=== PATIENT | female | born 1940 | race Caucasian/White ===

== ENCOUNTER → 2020-01-11 09:58 | Outpatient (BNVA) | payer MEDICARE, SELFPAY | PROVIDERS: Family Provider Nurse Practitioner Family; PCP Nurse Practitioner Family; Visit Provider Registered Nurse | DX: E11.9 Type 2 diabetes mellitus without complications (principal); M15.9 Polyosteoarthritis, unspecified; I10 Essential (primary) hypertension; K21.9 Gastro-esophageal reflux disease without esophagitis; N39.46 Mixed incontinence; E78.2 Mixed hyperlipidemia | CPT/HCPCS: 80053; 80061; 82044; 83036; 85025 ==

== ENCOUNTER → 2020-07-11 13:56 | Outpatient (BNVA) | payer MEDICARE, SELFPAY | PROVIDERS: Family Provider Nurse Practitioner Family; PCP Nurse Practitioner Family; Visit Provider Registered Nurse | DX: R10.9 Unspecified abdominal pain (principal) | CPT/HCPCS: 81000 ==

== ENCOUNTER → 2020-11-13 11:12 | Outpatient (BNVA) | payer MEDICARE, SELFPAY | PROVIDERS: Family Provider Nurse Practitioner Family; PCP Nurse Practitioner Family; Visit Provider Registered Nurse | DX: E11.9 Type 2 diabetes mellitus without complications (principal); M15.9 Polyosteoarthritis, unspecified; I10 Essential (primary) hypertension; K21.9 Gastro-esophageal reflux disease without esophagitis; N39.46 Mixed incontinence | CPT/HCPCS: 80053; 80061; 83036; 85025 ==

== ENCOUNTER → 2021-05-17 09:01 | Outpatient (BNVA) | payer MEDICARE, SELFPAY | PROVIDERS: Family Provider Nurse Practitioner Family; PCP Nurse Practitioner Family; Visit Provider Registered Nurse | DX: E11.9 Type 2 diabetes mellitus without complications (principal); R10.9 Unspecified abdominal pain; I10 Essential (primary) hypertension; E78.2 Mixed hyperlipidemia | CPT/HCPCS: 80053; 81000; 83036; 85025 ==

== ENCOUNTER → 2021-11-27 11:03 | Outpatient (BNVA) | payer MEDICARE, SELFPAY | PROVIDERS: Family Provider Nurse Practitioner Family; PCP Registered Nurse; Visit Provider Registered Nurse | DX: E11.9 Type 2 diabetes mellitus without complications (principal); R29.898 Other symptoms and signs involving the musculoskeletal system; I10 Essential (primary) hypertension; K21.9 Gastro-esophageal reflux disease without esophagitis | CPT/HCPCS: 83036 ==

== ENCOUNTER 2021-12-05 10:47 | Outpatient (RCR) | payer MEDICARE, SELFPAY | END 2021-12-17 23:59 | disposition home or self-care (01) | LOC: SOT 10:47 | PROVIDERS: PCP Registered Nurse; Visit Provider Registered Nurse | DX: R26.89 Other abnormalities of gait and mobility (principal); R29.898 Other symptoms and signs involving the musculoskeletal system | CPT/HCPCS: 97167; 97530 ==

== ENCOUNTER → 2022-05-23 09:49 | Outpatient (BNVA) | payer MEDICARE, SELFPAY | PROVIDERS: PCP Registered Nurse; Visit Provider Registered Nurse | DX: E11.9 Type 2 diabetes mellitus without complications (principal); I10 Essential (primary) hypertension; M15.9 Polyosteoarthritis, unspecified | CPT/HCPCS: 80053; 83036; 85025 ==

== ENCOUNTER → 2022-10-22 10:00 | Outpatient (BNVA) | payer MEDICARE, SELFPAY | PROVIDERS: PCP Registered Nurse; Visit Provider Registered Nurse | DX: E11.9 Type 2 diabetes mellitus without complications (principal); M15.9 Polyosteoarthritis, unspecified; K21.9 Gastro-esophageal reflux disease without esophagitis; N39.46 Mixed incontinence; I10 Essential (primary) hypertension; E78.2 Mixed hyperlipidemia; N32.81 Overactive bladder | CPT/HCPCS: 83036 ==

== ENCOUNTER → 2023-09-02 10:37 | Outpatient (BNVA) | payer MEDICARE, SELFPAY | PROVIDERS: PCP Registered Nurse; Visit Provider Registered Nurse | DX: E11.9 Type 2 diabetes mellitus without complications (principal); E78.5 Hyperlipidemia, unspecified; I10 Essential (primary) hypertension | CPT/HCPCS: 80053; 80061; 83036; 85025 ==

== ENCOUNTER → 2024-02-03 11:47 | Outpatient (BNVA) | payer MEDICARE, SELFPAY | PROVIDERS: PCP Registered Nurse; Visit Provider Registered Nurse | DX: E11.9 Type 2 diabetes mellitus without complications (principal) | CPT/HCPCS: 80053; 83036; 85025 ==

== ENCOUNTER → 2024-09-09 11:23 | Outpatient (BNVA) | payer MEDICARE, SELFPAY | PROVIDERS: PCP Registered Nurse; Visit Provider Registered Nurse | DX: E11.9 Type 2 diabetes mellitus without complications (principal) | CPT/HCPCS: 80048; 83036; 85025 ==

== ENCOUNTER → 2025-03-17 11:17 | Outpatient (BNVA) | payer MEDICARE, SELFPAY | PROVIDERS: PCP Registered Nurse; Visit Provider Registered Nurse | DX: E11.9 Type 2 diabetes mellitus without complications (principal); N39.0 Urinary tract infection, site not specified | CPT/HCPCS: 81000; 87086 ==

== ENCOUNTER 2025-04-18 10:19 | Inpatient (IN) | payer MEDICARE, SELFPAY ==
[2025-04-18] VITALS (16 sets, daily range): BP systolic 131–152; BP diastolic 60–86; PULSE 64–85; RESP 16–20; TEMP 36.3–36.9; O2SAT 90–100; BMI 32.3
--- OUTSIDE RECORDS SUMMARY | 2025-04-18 10:25 | XMS_ITS | Clinical Summary ---
Author Organization [facility] Address [address] [facility] Attn: Epic Prelude ADT LOTTIE GARZA [id number] Care Team Providers Care All Around Patternmaker Name Role Phone MARICARMEN Damico Sr., Lambert Marroquin Primary Care Pro vider Allergies Active Allergy Reactions Criticality Noted Date Comments Meperidine Unknown 08/11/2010 Active Problems Problem Noted Date Diagnosed Date Hyponatremia 08/11/2010 Pancreatitis 08/11/2010 Dehydration 08/11/2010 Choledocholithiasis ( CBD stone with T-tube in p lace) 08/02/2010 Immunizations Immunization Administration Dates Next Due Influenza Seasonal Unspecified Formulation IM Social History Tobacco Use Types Packs/Day Years Used Date Smoking Tobacco: Never Comments Unknown Sex and Gender Information Value Date Recorded Sex Assigned at Not on file 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
--- NOTE | 2025-04-18 10:42 | XR_ITS ---
WS: [id number] XR foot RT min 3V* [id number] REASON FOR EXAM: Pain swelling infection FINDINGS: No acute fracture or focal bone lesion. No bone erosion or periosteal reaction. Significant hallux valgus subluxation at the first MTP joint with mild changes of osteoarthritis. Mild joint space narrowing and mild subchondral sclerosis in the DIP and PIP joints of the toes. Significant joint space narrowing and subchondral sclerosis in the Lisfranc, intertarsal, and Chopart joints of the midfoot. Large dorsal osteophytosis in the medial cuneiform tarsal navicular articulation. Subtalar joint is intact and relatively well preserved. Large anterior calcaneal enthesophyte. XR/XR foot RT min 3V* [id number] IMPRESSION: No finding of osteomyelitis or septic joint. 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
[2025-04-18 11:16] LABS: Hematocrit 42.2 % (36-47); Hemoglobin 14.30 g/dL (11.27-16.99); Mean Corpuscular HGB Conc 33.9 g/dL (30-55); Mean Corpuscular Hemoglobin 28.8 pg (27-33); Mean Corpuscular Volume 85.1 fl (85-98); Nucleated Red Blood Cells % 0 %; Platelet Count 268 10^3/cmm (157-399); Red Blood Count 4.96 10^6/uL (3.85-5.65); White Blood Count 10.31 10^3/uL (3.29-11.43)
--- NOTE | 2025-04-18 11:18 | ED_ITS ---
HPI - Extremity Problem 2 General: Chief complaint: Extremity Problem,Nontraumatic Stated complaint: spot of R foot, red,hot to touch Time Seen by Provider: 04/18/25 10:23 Source: patient Mode of arrival: ambulatory Limitations: no limitations History of Present Illness: 84-year-old female history of diabetes s tates she noticed a wound to the top of her right foot last week states that the week it is worsening and has grown in send drainage increasing redness to her foot along with pain. She has not seen anyone for this wound. Denies any known injuries. Associated symptoms: Deny chest pain, fever(s) or rash Related Data Previous Rx's ?Medication ?Instructions ?Recorded Motorized Scooter #1 ea 05/17/21 blood sugar diagnostic (Blood #50 ea 11/27/21 Glucose Test strips) blood-glucose meter (Accu-Chek #1 ea 04/23/22 Guide Glucose Meter) rosuvastatin 10 mg tablet See Rx Instructions .Route 0 07/06/24 .COMPLEX #90 tabs trazodone 50 mg tablet 50 mg PO DAILY 30 days #30 t abs 09/13/24 amlodipine 10 mg tablet See Rx Instructions .Route 0 12/22/24 .COMPLEX #100 tabs celecoxib 200 mg capsule See Rx Instructions .Route 0 12/27/24 .COMPLEX #100 caps omeprazole 40 mg capsule,delayed See Rx Instructions . Route 01/31/25 release .COMPLEX #90 caps lancets (Accu-Chek Softclix #200 ea 02/21/25 Lancets) cephalexin 500 mg capsule 500 mg PO BID 5 days #10 cap s 03/17/25 glipizide 5 mg tablet See Rx Instructions .Route 0 03/17/25 .COMPLEX #190 tabs metoprolol tartrate 50 mg tablet See Rx Instructions . Route 03/17/25 .COMPLEX #100 tabs oxybutynin chloride 5 mg tablet See Rx Instructions .R oute 03/17/25 .COMPLEX #100 tabs Allergies Allergy/AdvReac Type Severity Reaction Status Date / Time meperidine (From Demerol) Allergy Unknown Verified 04/18/25 10:31 Review of Systems 2 Const: Denies: fever(s), chills, body aches or change in appetite ENMT: Denies: throat pain or dental pain Card: Denies: chest pain Resp: Denies: dyspnea GI: Denies: abdominal pain, nausea, vomiting or diarrhea : Denies: dysuria Musc: Reports: extremity pain; Denies: neck pain or back pain Skin/Breast: Reports: erythema; Denies: rash Neuro: Denies: headache(s) PFSH ED 2 PFSH: Medical History Overactive bladder GERD without esophagitis Family History Other Hypertension Social History Smoking and tobacco/nicotine status: never used tobacco/nicotine Alcohol intake: never Substance/Drug Use: never Adopted: No Caregiver/support person: Yes Lives independently: No Household members: spouse Marital status: Current occupational status: retired Sexually active: Yes Do you think of yourself as: Straight/Heterosexual Current gender identity: Female Taylor/Presybeterian: Buddhist Physical Exam 2 Const: COMMON NORMALS: no acute distress, patient oriented x3 and healthy appearing HENMT: COMMON NORMALS: normocephalic and atraumatic HEAD & SCALP: n ormocephalic and atraumatic Eye: COMMON NORMALS: conjunctivae normal CONJUNCTIVA: Yes conjunctivae normal Neck/C-Spine: COMMON NORMALS: full ROM and supple Chest: COMMONS NORMALS: normal inspection of the chest Resp: COMMON NORMALS: normal respiratory effort Cardio: COMMON NORMALS: regular rate RATE: regular rate Extremity: COMMON NORMALS: full ROM NARRATIVE EXTREMITY EXAM: Erythema noted to foot along with large wound dorsum of the foot with drainage Neuro: COMMON NORMALS: patient oriented x3, moves all extremities and no focal motor deficits Psych: COMMON NORMALS: mental status grossly normal, Normal thought process present and cooperative THOUGHT PROCESS: Normal thought process present Skin: COMMON NORMALS: no rashes or lesions noted and no wounds GENERAL SKIN EXAM: no rashes or lesions noted Course 2 Vital Signs: Vital signs: Vital Signs Temperature 97.4 F L 04/18/25 10:22 Pulse Rate 81 04/18/25 10:22 Blood Pressure 151/75 04/18/25 10:22 Pulse Oximetry 98 04/18/25 10:22 Oxygen Delivery Me thod Room Air 04/18/25 10:22 MDM - Extremity (Nontraumatic) Medical Decision Making Patient presents here with diabetic foot ulcer with cellulitis spoken to quality control supervisor along with hospitalist will admit patient likely is going to the OR today as well for debridement. Medical Records I reviewed the patient's medical records. Lab Data I reviewed the patient's lab results. 04/18/25 11:01 04/18/25 11:01 Radiology Impressions Foot X-Ray 04/18/25 10:42 IMPRESSION: No finding of osteomyelitis or septic joint. 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 Laboratory Results WBC 10.31 10^3/uL (3.29-11.43) 04/18/25 11:01 RBC 4.96 10^6/uL (3.85-5.65) 04/18/25 11:01 Hgb 14.30 g/dL (11.27-16.99) 04/18/25 11:01 Hct 42.2 % (36-47) 04/18/25 11:01 MCV 85.1 fl (85-98) 04/18/25 11:01 MCH 28.8 pg (27-33) 04/18/25 11:01 MCHC 33.9 g/dL (30-55) 04/18/25 11:01 RDW 12.9 % (12.1-15.1) 04/18/25 11:01 Plt Count 268 10^3/cmm (157-399) 04/18/25 11:01 MPV 9.4 fL (7.4-10.4) 04/18/25 11:01 Neut % (Auto) 76.2 % 04/18/25 11:01 Lymph % (Auto) 9.8 % 04/18/25 11:01 [place] % (Auto) 11.5 % 04/18/25 11:01 Eos % (Auto) 1.4 % 04/18/25 11:01 Baso % (Auto) 0.6 % 04/18/25 11:01 Neut # (Auto) 7.86 10^3/uL (1.8-7.7) H 04/18/25 11:01 Lymph # (Auto) 1.0 10^3/uL (0.8-4.8) 04/18/25 11:01 [place] # (Auto) 1.2 10^3/uL (0.2-0.9) H 04/18/25 11:01 Eos # (Auto) 0.1 10^3/uL (0.0-0.8) 04/18/25 11:01 Baso # (Auto) 0.1 10^3/uL (0.0-0.1) 04/18/25 11:01 Nucleated RBC % (auto) 0 % 04/18/25 11:01 Nucleated RBCs # 0.0 /100WBC 04/18/25 11:01 ESR 67 mm/hr (0-15) H 04/18/25 11:01 Sodium 136 mmol/L (136-145) 04/18/25 11:01 Potassium 3.8 mmol/L (3.5-5.1) 04/18/25 11:01 Chloride 98 mmol/L (98-107) 04/18/25 11:01 Carbon Dioxide 22 mmol/L (22-29) 04/18/25 11:01 Anion Gap 19.8 (5-19) H 04/18/25 11:01 BUN 13 mg/dL (8-23) 04/18/25 11:01 Creatinine 0.6 mg/dL (0.5-0.9) 04/18/25 11:01 GFR Calculation Not Reportable 04/18/25 11:01 Glucose 195 mg/dL (65-115) H 04/18/25 11:01 Calculated Osmolality 287 mOsm/kg (285-295) 04/18/25 11:01 Calcium 9.7 mg/dL (8.5-10.5) 04/18/25 11:01 Total Bilirubin 1.0 mg/dL (0.15-1.2) 04/18/25 11:01 AST 27 U/L (0-32) 04/18/25 11:01 ALT 28 U/L (0-33) 04/18/25 11:01 Alkaline Phosphatase 104 U/L (35-105) 04/18/25 11:01 C-Reactive Protein 118.2 mg/L (0.0-4.9) H 04/18/25 11:01 Total Protein 7.5 g/dL (6.6-8.7) 04/18/25 11:01 Albumin 3.6 g/dL (3.5-5.2) 04/18/25 11:01 Globulin 3.9 g/dL (1.3-4.6) 04/18/25 11:01 All radiology interpretation(s) finalized by discharge Discharge Plan Discharge Patient Disposition: Admitted As Inpatient Clinical Impression: Cellulitis of foot, right Condition: Stable Coding Level of Care Code ED Numerical Control Router Operator for Stuart Byrd
[2025-04-18 11:41] LABS: Alanine Aminotransferase 28 U/L (0-33); Albumin Level 3.6 g/dL (3.5-5.2); Alkaline Phosphatase 104 U/L (35-105); Anion Gap 19.8 (5-19); Aspartate Amino Transferase 27 U/L (0-32); Blood Urea Nitrogen 13 mg/dL (8-23); Calcium 9.7 mg/dL (8.5-10.5); Carbon Dioxide 22 mmol/L (22-29); Chloride 98 mmol/L (98-107); Creatinine Clr Calc Pharmacy 61.5113; Globulin 3.9 g/dL (1.3-4.6); Glucose 195 mg/dL (65-115); Osmolality Calculated 287 mOsm/kg (285-295); Potassium 3.8 mmol/L (3.5-5.1); Sodium 136 mmol/L (136-145); Total Protein 7.5 g/dL (6.6-8.7)
[2025-04-18] MEDS: piperacillin-tazobactam 3.375 GM in sodium chloride 0.9% (plus) 50 ML IV ×2 (11:52→17:55)
--- NOTE | 2025-04-18 12:21 | ANES.PREANE2 ---
Pre-Anesthetic Assessment Height/Weight: Height 5 ft 6 in Weight 200 lb Temp Pulse BP Pulse Ox O2 Del Method 97.4 F L 81 151/75 98 Room Air 04/18/25 10:22 04/18/25 10:04/18/25 10:04/18/25 10:04/18/25 10:22 Preop Diagnosis: Foot infection Was Beta Estrellita taken within 24 hours: Yes Was Clonidine taken within 24 hours: N/A Social No alcohol and No tobacco Exam alert, oriented x 3, clear to auscultation bilaterally and regular rate & rhythm Airway Submandibular: within normal limits Cervical ROM: within normal limits Mallampati: Class III Comments: Comments: Few missing teeth, denies any loose Anesthetic Plan ASA status: 3E Anesthesia: MAC Other: Patient presents to the ER today with lower extremity wound NPO since 8 PM last night No prior issues with anesthesia Hips history of hypertension on amlodipine and metoprolol GERD, controlled with omeprazole Type 2 diabetes. No insulin. BS 195 Labs from today reviewed and acceptable for procedure Plan for MAC anesthesia with local via surgeon Medications/Allergies Home Medications ?Medication ?Instructions ?Recorded ?Confirmed ?Last Taken ?Type Motorized Scooter #1 ea 05/17/21 03/17/25 Unknown Rx blood sugar diagnostic (Blood #50 ea 11/27/21 03/17/25 Unknown Rx Glucose Test strips) blood-glucose meter (Accu-Chek #1 ea 04/23/22 03/17/25 Unknown Rx Guide Glucose Meter) rosuvastatin 10 mg tablet See Rx Instructions .Route 07/06/24 03/17/25 Unknown Rx .COMPLEX #90 tabs trazodone 50 mg tablet 50 mg PO DAILY 30 days #30 tabs 09/13/24 03/17/25 Unknown Rx amlodipine 10 mg tablet See Rx Instructions .Route 12/22/24 03/17/25 Unknown Rx .COMPLEX #100 tabs celecoxib 200 mg capsule See Rx Instructions .Route 12/27/24 03/17/25 Unknown Rx .COMPLEX #100 caps omeprazole 40 mg capsule,delayed See Rx Instructions .Route 01/31/25 03/17/25 Unknown Rx release .COMPLEX #90 caps lancets (Accu-Chek Softclix #200 ea 02/21/25 03/17/25 Unknown Rx Lancets) cephalexin 500 mg capsule 500 mg PO BID 5 days #10 caps 05/29/25 05/29/25 Unknown Rx glipizide 5 mg tablet See Rx Instructions .Route 03/17/25 03/17/25 Unknown Rx .COMPLEX #190 tabs metoprolol tartrate 50 mg tablet See Rx Instructions .Route 03/17/25 03/17/25 Unknown Rx .COMPLEX #100 tabs oxybutynin chloride 5 mg tablet See Rx Instructions .Route 03/17/25 03/17/25 Unknown Rx .COMPLEX #100 tabs Allergies Allergy/AdvReac Type Severity Reaction Status Date / Time meperidine (From Demerol) Allergy Unknown Verified 04/18/25 10:31 [facility] Anesthesia Medical History Overactive bladder GERD without esophagitis Family History Other Hypertension Social History Smoking and tobacco/nicotine status: never used tobacco/nicotine Alcohol intake: never Substance/Drug Use: never Adopted: No Caregiver/support person: Yes Lives independently: No Household members: spouse Marital status: Current occupational status: retired Sexually active: Yes Do you think of yourself as: Straight/Heterosexual Current gender identity: Female Taylor/Anglican: Spiritism Data Anesthesia 04/18/25 11:01 04/18/25 11:01 Short CBC 04/18/25 Range/Units 11:01 WBC 10.31 (3.29-11.43) 10^3/uL Hgb 14.30 (11.27-16.99) g/dL Hct 42.2 (36-47) % MCV 85.1 (85-98) fl Plt Count 268 (157-399) 10^3/cmm Neut % (Auto) 76.2 % Neut # (Auto) 7.86 H (1.8-7.7) 10^3/uL BMP 04/18/25 11:01 Sodium 136 Potassium 3.8 Chloride 98 Carbon Dioxide 22 BUN 13 Creatinine 0.6 Glucose 195 H Calcium 9.7 Liver Function 04/18/25 Range/Units 11:01 Total Bilirubin 1.0 (0.15-1.2) mg/dL AST 27 (0-32) U/L ALT 28 (0-33) U/L Alkaline Phosphatase 104 (35-105) U/L Albumin 3.6 (3.5-5.2) g/dL Coags 04/18/25 11:01 ESR 67 H C-Reactive Protein 118.2 H Microbiology 04/18/25 11:07 Blood Culture - Preliminary Blood SPECIMEN COLLECTED 04/18/25 11:01 Blood Culture - Preliminary Blood SPECIMEN COLLECTED
--- NOTE | 2025-04-18 12:28 | PM.CONSULT ---
Providers/Reason For Consult Consulting Physician/Specialty*: Dr. Usman Abdi, D.P.M./podiatry Reason for Consult*: Right foot gangrene Attending Physician: Usman Abdi DPM Primary Care Provider: MARICARMEN Boggs History of Present Illness History of Present Illness Erica Bradford is a 84 year old female who presents to the ER today with full-thickness ulceration, infection to right hallux. She states that this started last Friday with couple of small blisters that have continued to worsen over the course of the past week. Review of Systems General: Reports: 10 or more systems reviewed and unremarkable except in HPI and below Const: Denies: fever(s), chills, body aches or change in appetite Eyes: Denies: change in vision or blurry vision Card: Denies: chest pain, palpitations or irregular heart rhythm Resp: Denies: dyspnea GI: Denies: abdominal pain, nausea, vomiting or diarrhea Musc: Reports: joint stiffness Skin/Breast: Reports: non-healing lesions and lesions Neuro: Reports: numbness in extremities Medications/Allergies Home Medications ?Medication ?Instructions ?Recorded ?Confirmed ?Last Taken ?Type Motorized Scooter #1 ea 05/17/21 04/18/25 Unknown Rx blood sugar diagnostic (Blood #50 ea 11/27/21 04/18/25 Unknown Rx Glucose Test strips) blood-glucose meter (Accu-Chek #1 ea 04/23/22 04/18/25 Unknown Rx Guide Glucose Meter) lancets (Accu-Chek Softclix #200 ea 02/21/25 04/18/25 Unknown Rx Lancets) amlodipine 10 mg tablet 10 mg PO DAILY 04/18/25 04/18/25 Unknown History celecoxib 200 mg capsule 200 mg PO BID 04/18/25 04/18/25 Unknown History glipizide 5 mg tablet 5 mg PO BID 04/18/25 04/18/25 Unknown History metoprolol tartrate 50 mg tablet 50 mg PO DAILY 04/18/25 04/18/25 Unknown History omeprazole 40 mg capsule,delayed 40 mg PO DAILY 04/18/25 04/18/25 Unknown History release oxybutynin chloride 5 mg tablet 5 mg PO DAILY 04/18/25 04/18/25 Unknown History rosuvastatin 10 mg tablet 10 mg PO DAILY 04/18/25 04/18/25 Unknown History Allergies Allergy/AdvReac Type Severity Reaction Status Date / Time meperidine (From Demerol) Allergy Unknown Verified 04/18/25 10:31 PFSH Acute PFSH: Medical History Overactive bladder GERD without esophagitis Family History Other Hypertension Social History Smoking and tobacco/nicotine status: never used tobacco/nicotine Alcohol intake: never Substance/Drug Use: never Adopted: No Caregiver/support person: Yes Lives independently: No Household members: spouse Marital status: Current occupational status: retired Sexually active: Yes Do you think of yourself as: Straight/Heterosexual Current gender identity: Female Taylor/Sabianism: Pentecostalism Vitals/I&O/Wt Last Vital Signs Temp 97.4 F L 04/18/25 10:22 Pulse 81 04/18/25 10:22 BP 151/75 04/18/25 10:22 Pulse Ox 98 04/18/25 10:22 O2 Del Method Room Air 04/18/25 10:22 Weight last 48 hrs Weight 200 lb Physical Exam Narrative: BELOW IS A FOCUSED LOWER EXTREMITY EXAM GENERAL: A&O x 3 VASCULAR: DP/PT pulses palpable 2/4 with CFT intact, <3seconds to distal digits DERMATOLOGICAL: Necrotic ulceration to first interdigital space extending onto the dorsum of the right hallux with significant surrounding erythema and active serous drainage. Subcutaneous crepitus upon direct outpatient of the wound. MUSCULOSKELETAL: Hallux valgus deformity right foot NEUROLOGICAL: Diminished sensation to the level of the midfoot bilaterally. IMAGING: Three-view x-rays of right foot taken in the emergency department were independently interpreted by me. These show hallux valgus deformity with metatarsus adductus. Small radiolucencies in first interdigital space concerning for gas gangrene. Data 04/19/25 05:17 04/19/25 05:17 Micro: Microbiology 04/18/25 11:07 Blood Culture - Preliminary Blood SPECIMEN COLLECTED 04/18/25 11:01 Blood Culture - Preliminary Blood SPECIMEN COLLECTED A&P Assessment and plan (1) Type 2 diabetes mellitus: (2) Cellulitis of foot, right: (3) Gangrene of right foot: Plan - Right foot gangrene -Labs and vitals reviewed -WBC 10.3 -ESR 67 -CRP 118.2 -HR 81 -RR 20 -Tmax 97.4 -Cultures to be obtained in OR -Abx Vanco/Zosyn -Diet: N.p.o. -Plan to take patient directly to the OR for debridement from the ER. Discussed with patient that surgery will involve incision and drainage right foot with possible hallux amputation. We also discussed that patient is at risk for transmetatarsal amputation due to the extent of cellulitis and soft tissue necrosis. Patient verbalized understanding to this. -Pain Mgmt: Per primary team -Weight bearing: To right heel for transfers only -Dressings: To be changed by podiatry -Continue current Abx therapy until ID and Sensitivity results -Trend labs -Discharge plan: To be determined -Podiatry will continue to round on patient daily and provide recommendations PDMP PDMP Reviewed: Not Reviewed Coding Level of Care Code Acute Code for Chg Fwd Diagnoses Type 2 diabetes mellitus without complication, without long-term current use of insulin E11.9 Diabetes mellitus complication status: without complication Diabetes mellitus parts counterman insulin use: without parts counterman use Cellulitis of foot, right L03.115 Gangrene of right foot I96
[2025-04-18] MEDS: VANCOMYCIN ADD-Vantage 1,000 MG in 0.9% NaCl ADD-Vantage 250 ML 250 MG IV (12:51)
--- NOTE | 2025-04-18 12:59 | PM.HP ---
Providers/Chief Complaint Primary Care Provider: MARICARMEN Boggs Chief Complaint: spot of R foot, red,hot to touch History of Present Illness Erica Bradford is a 84 year old female With past medical history of diabetes presented to the hospital with a wound on her right foot. She believes it may have been a spider bite but she is unsure. She states has been worsening with increasing drainage and worsening redness to the foot. She has not seek medical attention prior to today. She was seen in the ER. Podiatry was consulted. Plan to go to the OR for washout. She does not take any insulin at home. She is on glipizide for her diabetes. Denies nausea vomiting diarrhea abdominal pain chest pain shortness of breath. Denies fever. Currently saturating 96% on room air. WBC 10,000. X-ray foot showed osteoarthropathy of right foot as above with calcaneal Patient went to the OR from the ER. She was seen by hospitalist postop. Medications/Allergies Home Medications ?Medication ?Instructions ?Recorded ?Confirmed ?Last Taken ?Type Motorized Scooter #1 ea 05/17/21 04/18/25 Unknown Rx blood sugar diagnostic (Blood #50 ea 11/27/21 04/18/25 Unknown Rx Glucose Test strips) blood-glucose meter (Accu-Chek #1 ea 04/23/22 04/18/25 Unknown Rx Guide Glucose Meter) lancets (Accu-Chek Softclix #200 ea 02/21/25 04/18/25 Unknown Rx Lancets) amlodipine 10 mg tablet 10 mg PO DAILY 04/18/25 04/18/25 Unknown History celecoxib 200 mg capsule 200 mg PO BID 04/18/25 04/18/25 Unknown History glipizide 5 mg tablet 5 mg PO BID 04/18/25 04/18/25 Unknown History metoprolol tartrate 50 mg tablet 50 mg PO DAILY 04/18/25 04/18/25 Unknown History omeprazole 40 mg capsule,delayed 40 mg PO DAILY 04/18/25 04/18/25 Unknown History release oxybutynin chloride 5 mg tablet 5 mg PO DAILY 04/18/25 04/18/25 Unknown History rosuvastatin 10 mg tablet 10 mg PO DAILY 04/18/25 04/18/25 Unknown History Allergies Allergy/AdvReac Type Severity Reaction Status Date / Time meperidine (From Demerol) Allergy Unknown Verified 04/18/25 10:31 PFSH Acute PFSH: Medical History Overactive bladder GERD without esophagitis Family History Other Hypertension Social History Smoking and tobacco/nicotine status: never used tobacco/nicotine Alcohol intake: never Substance/Drug Use: never Adopted: No Caregiver/support person: Yes Lives independently: No Household members: spouse Marital status: Current occupational status: retired Sexually active: Yes Do you think of yourself as: Straight/Heterosexual Current gender identity: Female Taylor/Jehovah'S Witness: Advent Vitals/I&O/Wt Last Vital Signs Temp 97.4 F L 04/18/25 10:22 Pulse 85 04/18/25 12:49 Resp 16 04/18/25 12:49 BP 152/86 04/18/25 12:49 Pulse Ox 90 04/18/25 12:49 O2 Del Method Room Air 04/18/25 10:22 Weight last 48 hrs Weight 90.718 kg Physical Exam Narrative: General: Alert oriented x3, patient seen laying in bed appearing comfortable at this time. Right foot wrapped with bandage. HEENT: Normocephalic, atraumatic, EOMI, Cardio: Regular rate rhythm, normal S1-S2, Respiratory: Good bilateral air entry, no wheezes no rhonchi appreciated GI: Abdomen soft, nontender, bowel sounds + Extremities:no edema b/l LE Data 04/18/25 11:01 04/18/25 11:01 Micro: Microbiology 04/18/25 11:07 Blood Culture - Preliminary Blood SPECIMEN COLLECTED 04/18/25 11:01 Blood Culture - Preliminary Blood SPECIMEN COLLECTED A&P Assessment and plan (1) Essential hypertension: (2) Hyperlipidemia: (3) Type 2 diabetes mellitus: (4) GERD without esophagitis: (5) Cellulitis of foot, right: (6) Gangrene of right foot: (7) Foot abscess: Plan #Right great toe infection #Right foot cellulitis #Large foot abscess status post washout drainage and right big toe amputation #Diabetes mellitus #Hypertension #Hypercholesterolemia ? Will place on vancomycin and Zosyn broad-spectrum antibiotics ? Check procalcitonin ? Check blood cultures ? Intraoperative cultures will be obtained ? Podiatry plans to retake the OR in next few days for repeat debridement if required. ? Check CRP in AM. Today 118. ? Will follow cultures to aid in antibiotic at discharge ? Requires IV antibiotics at this time for right foot abscess ? Sliding scale insulin moderate dose intensity ? Check hemoglobin A1c ? Continue on carb consistent diet ? Check venous Dopplers to rule out DVT Full code DVT prophylaxis: Heparin SQ twice daily PDMP PDMP Reviewed: Not Reviewed Attestations Medical Necessity Statement*: right foot cellulitis with abcess Diagnoses Essential hypertension I10 Mixed hyperlipidemia E78.2 Hyperlipidemia type: mixed hyperlipidemia Type 2 diabetes mellitus without complication, without long-term current use of insulin E11.9 Diabetes mellitus complication status: without complication Diabetes mellitus termite renewal inspector insulin use: without termite renewal inspector use GERD without esophagitis K21.9 Cellulitis of foot, right L03.115 Gangrene of right foot I96 Foot abscess L02.619
--- NOTE | 2025-04-18 13:01 | P.HPUD_ITS ---
Surgery/Procedure H&P Update DATE OF PROCEDURE: April 18, 2025 DATE H&P PERFORMED: 04/18/25 H&P UPDATE INFORMATION: I have reviewed H&P completed within last 30 days, I have examined patient prior to procedure, No changes to prior documentation, H&P is in [facility] EMR on date indicated and Risks and benefits of the procedure reviewed PREOP DIAGNOSIS: Foot infection PLANNED PROCEDURE: Operation Date: 04/18/25 13:00 Proposed Procedures p Incision And Drainage(Right) - Usman Abdi DPM
--- NOTE | 2025-04-18 13:11 | PC.PHAR ---
Pt gone to OR prior to completing Med Rec. Was able to verify pt med list with [facility] mail order pharmacy with last fill date and day supply. Unable to verify last taken.
[2025-04-18] MEDS: BUPivacaine 0.5% INJ 30 mL INJECTION (13:38)
--- NOTE | 2025-04-18 13:58 | PM.OP ---
Operative Report Date of procedure: April 18, 2025 Surgeon: Usman Abdi DPM Procedure: Date of procedure: 04/18/2025 Pre-op diagnosis: Right foot abscess Post-op diagnosis: Same Post-op findings: Large abscess first intermetatarsal space right foot enveloping first metatarsophalangeal joint Procedure done: 1. Incision and drainage right foot CPT 75387 2. Right hallux amputation CPT 89611 Implants: None Specimens removed: Cultures aerobic and anaerobic, right hallux sent to pathology as surgical specimen Surgeon: Dr. Usman Abdi DPM Truck Bench Mechanic: Roxanne Estimated blood loss: 15 cc Tourniquet time: No tourniquet used Complications: None The patient presents with a severe foot infection involving right hallux and first intermetatarsal space, characterized by erythema, swelling, and drainage. The infection is complicated by underlying conditions, including diabetes, peripheral vascular disease, which have contributed to the progression of the infection despite conservative management. Preoperative imaging and laboratory results indicate osteomyelitis, abscess formation, necessitating surgical intervention. The planned procedure is intended to address the infection, debride necrotic tissue, and, if necessary, assess the viability of surrounding structures to prevent further complications. The patient has been NPO since midnight. The history has been reviewed and the history and physical is current. The signed consent was confirmed and placed in the patient chart. Patient imaging has been reviewed and is consistent with the diagnosis. Under mild sedation, the patient was brought into the operating room and placed on the table in the supine position. Antibiotics were not administered preoperatively due to the fact that cultures would be taken intraoperatively. General sedation was then performed by the anesthesiateam. A pneumatic tourniquet was then placed about the right ankle. The operative extremity was then prepped and draped in the usual fashion. After prep, the following procedure was then performed. Attention was directed to the right foot where a large area of necrosis over the hallux and first intermetatarsal space was noted. A #15 blade was used to incise over the first intermetatarsal space. There was noted to be an extravasation of purulent material coming from the area. Cultures both aerobic and anaerobic were taken at this point and sent to micro for ID and sensitivity. The abscess was further explored using blunt dissection with hemostat. There was noted to extend into the first intermetatarsal space and to the plantar aspect of the foot. This was noted to involve the first metatarsal phalangeal joint with compromise of the first metatarsal phalangeal joint capsule. It was determined this point that hallux amputation would be most beneficial option given extent of necrotic tissue. #10 blade was used to resect the metatarsophalangeal joint, hallux was passed from the operative field be sent a surgical specimen. A rongeur was used to remove all necrotic and nonviable tissue. The site was then irrigated with 3000 cc of sterile saline via pulse lavage. The foot was expressed and no further purulence was visualized. The wound was packed with Betadine soaked 4 x 4 gauze, dry 4 x 4 gauze, ABD pad, Kerlix, Sixto bandage. The patient tolerated the procedure and anesthesia well and without complication. The patient was transported from the operating room to the recovery room with vital signs stable and vascular status intact to all digits of the right foot. Thepatient was instructed to remain nonweightbearing to the operative extremity, to keep surgical dressing clean, dry and intact. The patient will be transferred back to the floor once anesthesia criteria is met. I will continue to round on and follow the patient in the inpatientsetting and provide recommendations to stabilize the patient for discharge.
[2025-04-18 15:12] LABS: Estmated Average Glucose 174; Hemoglobin A1C 7.7 % (4.0-6.0)
[2025-04-18 15:13] LABS: Procalcitonin 0.76 ng/mL (0-0.5); Thyroid Stimulating Hormone 1.41 uIU/mL (0.27-4.20)
[2025-04-18 15:53] LABS: Lactic Sepsis W/Reflex 1.4 mmol/L (0.5-2.2)
--- NOTE | 2025-04-18 16:13 | USCV_ITS ---
Erica Bradford Age: 84 Gender: F : 1940 Exam Date: 04/18/2025 19:14 Ordering Phys: Sandra Gallo MD Technologist: RASHEL Exam Location: [facility] – [place] Indication: r/o dvt s/p RT 1st toe amputation HISTORY: r/o dvt s/p RT 1st toe amputation PROCEDURES: Venous duplex imaging was performed in bilateral lower extremities. The following venous structures were evaluated: common femoral vein, profunda vein, proximal portion of the greater saphenous vein, superficial femoral vein, and the popliteal vein. In addition, the posterior tibial and peroneal veins were evaluated. FINDINGS: Normal 2-D Doppler and augmentation and compressibility throughout the lower extremity venous structures. Additional imaging through the proximal calf veins also reveals no thrombus. Limited evaluation of the greater saphenous vein is patent with no thrombus. CONCLUSIONS No DVT bilateral lower extremities. Dr. [place] Rasheed DO (Electronically Signed) Final Date: 19 April 2025 13:27 S
[2025-04-18] MEDS: heparin 5,000 unit/mL INJ 1 mL 5000 UNIT SUBCUT (17:55)
--- NOTE | 2025-04-18 21:12 | PHA.VACGOAL ---
Vancomycin Goal - Goal Vancomycin Goal:: 10-15 mg/L Vancomycin Indication:: SSTI - Therapy Current therapy:: Pip/Tazo Day of therpy:: Day [1]of [] . Actual body weight (kg): 90.718 kg - Data Labs: WBC 10.31 10^3/uL (3.29-11.43) 04/18/25 11:01 RBC 4.96 10^6/uL (3.85-5.65) 04/18/25 11:01 Hgb 14.30 g/dL (11.27-16.99) 04/18/25 11:01 Hct 42.2 % (36-47) 04/18/25 11:01 MCV 85.1 fl (85-98) 04/18/25 11:01 MCH 28.8 pg (27-33) 04/18/25 11:01 MCHC 33.9 g/dL (30-55) 04/18/25 11:01 RDW 12.9 % (12.1-15.1) 04/18/25 11:01 Sodium 136 mmol/L (136-145) 04/18/25 11:01 Potassium 3.8 mmol/L (3.5-5.1) 04/18/25 11:01 Chloride 98 mmol/L (98-107) 04/18/25 11:01 Carbon Dioxide 22 mmol/L (22-29) 04/18/25 11:01 Anion Gap 19.8 (5-19) H 04/18/25 11:01 BUN 13 mg/dL (8-23) 04/18/25 11:01 Creatinine 0.6 mg/dL (0.5-0.9) 04/18/25 11:01 GFR Calculation Not Reportable 04/18/25 11:01 Treatment plan:: new consult Regimen:: New start vancomycin for Cellulitis of right foot. No prior vancomycin history found. Started on maintenance dose of 1000 mg q12h.
[2025-04-19] MEDS: VANCOMYCIN ADD-Vantage 1,000 MG in 0.9% NaCl ADD-Vantage 250 ML 250 MG IV ×2 (00:35→12:02)
[2025-04-19] MEDS: heparin 5,000 unit/mL INJ 1 mL 5000 UNIT SUBCUT ×2 (01:53→15:55)
[2025-04-19] MEDS: piperacillin-tazobactam 3.375 GM in sodium chloride 0.9% (plus) 50 ML IV ×3 (01:53→17:03)
[2025-04-19 03:56] VITALS: BP 134/72; PULSE 70; RESP 17; TEMP 36.9; O2SAT 94
[2025-04-19 05:39] LABS: Hematocrit 36.6 % (36-47); Hemoglobin 12.00 g/dL (11.27-16.99); Mean Corpuscular HGB Conc 32.8 g/dL (30-55); Mean Corpuscular Hemoglobin 28.8 pg (27-33); Mean Corpuscular Volume 88.0 fl (85-98); Nucleated Red Blood Cells % 0 %; Platelet Count 193 10^3/cmm (157-399); Red Blood Count 4.16 10^6/uL (3.85-5.65); White Blood Count 8.28 10^3/uL (3.29-11.43)
[2025-04-19 06:00] LABS: Alanine Aminotransferase 21 U/L (0-33); Albumin Level 2.8 g/dL (3.5-5.2); Alkaline Phosphatase 88 U/L (35-105); Anion Gap 17.8 (5-19); Aspartate Amino Transferase 20 U/L (0-32); Blood Urea Nitrogen 8 mg/dL (8-23); Calcium 8.4 mg/dL (8.5-10.5); Carbon Dioxide 21 mmol/L (22-29); Chloride 104 mmol/L (98-107); Creatinine Clr Calc Pharmacy 61.4028; Globulin 3.0 g/dL (1.3-4.6); Glucose 186 mg/dL (65-115); Magnesium 1.7 mg/dL (1.7-2.3); Osmolality Calculated 291 mOsm/kg (285-295); Potassium 3.8 mmol/L (3.5-5.1); Sodium 139 mmol/L (136-145); Total Protein 5.8 g/dL (6.6-8.7)
[2025-04-19 08:03] VITALS: BP 140/71; PULSE 69; RESP 18; TEMP 36.6; O2SAT 96
--- NOTE | 2025-04-19 10:49 | PC.CHAP ---
Pastoral Care Encounter/Spiritual Assessment Type of Contact [] Declined mental health consultant visit [] Patient/Family/Request visit [] Outpatient visit [] Follow-up visit [] Physician referral [] Code/Alert [x] Routine visit [] Staff referral [] Actively dying [] Patient sleeping [] Family support [] [] Out of room [] Palliative care [] [] Receiving care in room [] Pre-surgical visit [] Trauma [] Long length of stay [] ICU visit [] Other: Relational/Emotional Strength x[] Patient feels connected with others/family/visitors/staff [] Distress [] Loneliness/isolation [] Abandonment Spirituality of Patient [x] Person of Taylor [] Attends Sikhism of their [place] [x] Believes in Prayer [] Reads Bible or Orthodoxy materials [] There are Spiritual issues to be addressed Clinical Trials Nurse Interventions [x] Prayer [x] Active listening [x] Non-anxious presence [x] Spiritual/emotional support [] Crisis/trauma care [] Spiritual counseling [] Bereavement support [] Provided bereavement packet [] Provided Bible/devotional materials [] Provided toy/stuffed animal, coloring book to patient or family member [] Provided Communion [] Anointing/[place] [] Salvation [x] Completed spiritual assessment [] Other: Impact on Illness or Injury [] Angry [] Fearful [] Anxious [] Often cries [] Exhaustion [] Unable to work [] Unable to attend orthodoxy [] Unable to walk/stand [] Unable to read [] Unable to drive [] Unable to eat/drink [] Unable to sleep [] Unable to be with family [] Patient intubated [] Other: Summary Time spent with patient 15 min
[2025-04-19 12:17] VITALS: BP 149/66; PULSE 67; RESP 18; TEMP 36.6; O2SAT 96
--- NOTE | 2025-04-19 15:20 | PM.PN ---
Subjective Subjective: Patient seen at bedside this morning. Resting comfortably. Denies any overnight events. States that she refuses to go to facility and wants to go home when it comes time for discharge. Vitals/I&O/Wt Last Vital Signs Temp 97.8 F 04/19/25 12:17 Pulse 67 04/19/25 12:17 Resp 18 04/19/25 12:17 BP 149/66 04/19/25 12:17 Pulse Ox 96 04/19/25 12:17 O2 Del Method Room Air 04/19/25 12:17 O2 Flow Rate 8 04/18/25 14:02 04/19/25 04/19/25 04/19/25 06:59 14:59 22:59 Intake Total 1138.75 / 2671.75 780 / 780 Balance 1138.75 / 2656.75 780 / 780 Weight last 48 hrs Weight 199 lb 4.8 oz Weight 200 lb Weight 200 lb Physical Exam Narrative: BELOW IS A FOCUSED LOWER EXTREMITY EXAM GENERAL: A&O x 3 VASCULAR: DP/PT pulses palpable 2/4 with CFT intact, <3seconds to distal digits DERMATOLOGICAL: Surgical dressing clean, dry, intact with no strikethrough noted. MUSCULOSKELETAL: Hallux valgus deformity right foot NEUROLOGICAL: Diminished sensation to the level of the midfoot bilaterally. IMAGING: Three-view x-rays of right foot taken in the emergency department were independently interpreted by me. These show hallux valgus deformity with metatarsus adductus. Small radiolucencies in first interdigital space concerning for gas gangrene. Data 04/19/25 05:17 04/19/25 05:17 Micro: Microbiology 04/18/25 13:31 Gram Stain - Final Tissue Anaerobic Culture - Preliminary Abscess Culture - Preliminary Coag positive Staphylococcus 04/18/25 11:07 Blood Culture - Preliminary Blood NEGATIVE TO DATE 04/18/25 11:01 Blood Culture - Preliminary Blood NEGATIVE TO DATE A&P Assessment and plan (1) Type 2 diabetes mellitus: (2) Cellulitis of foot, right: (3) Gangrene of right foot: Plan - Right foot gangrene -Labs and vitals reviewed -WBC 10.3 -ESR 67 -CRP 118.2 - VSS -Cultures to be obtained in OR -Abx Vanco/Zosyn -Diet: N.p.o. -Plan to return to the OR tomorrow 04/20/2025 for incision bone cortex right foot with delayed primary closure. -Pain Mgmt: Per primary team -Weight bearing: To right heel for transfers only -Dressings: To be changed by podiatry -Continue current Abx therapy until ID and Sensitivity results -Trend labs -Discharge plan: Due to extent of necrosis of soft tissue and concern for possible underlying osteomyelitis of adjacent second digit recommend PICC line with 6 weeks IV antibiotics. I also discussed with patient that I believe she should go to facility upon discharge from hospital with PICC line placement and daily infusions. Patient is refusing this at this time. -Podiatry will continue to round on patient daily and provide recommendations PDMP PDMP Reviewed: Not Reviewed Attestations Medical Necessity Statement*: Plan to return to the OR tomorrow 04-20-25 Coding Level of Care Code Acute Code for Chg Fwd Diagnoses Type 2 diabetes mellitus without complication, without long-term current use of insulin E11.9 Diabetes mellitus terminal operations supervisor insulin use: without terminal operations supervisor use Diabetes mellitus complication status: without complication Cellulitis of foot, right L03.115 Gangrene of right foot I96
[2025-04-19 15:54] VITALS: BP 103/55; PULSE 70; RESP 17; TEMP 37.3; O2SAT 94
--- NOTE | 2025-04-19 17:24 | PM.PN ---
Subjective Subjective: Patient went to the OR yesterday with abscess drainage and right big toe amputation. Plan for delayed closure tomorrow 04/20 at noon. Resting comfortably in bed. Offers no complaints at this time. Vitals/I&O/Wt Last Vital Signs Temp 99.2 F 04/19/25 15:54 Pulse 70 04/19/25 15:54 Resp 17 04/19/25 15:54 BP 103/55 04/19/25 15:54 Pulse Ox 94 04/19/25 15:54 O2 Del Method Room Air 04/19/25 15:54 O2 Flow Rate 8 04/18/25 14:02 04/19/25 04/19/25 04/19/25 06:59 14:59 22:59 Intake Total 1138.75 / 2671.75 780 / 780 Balance 1138.75 / 2656.75 780 / 780 Weight last 48 hrs Weight 90.401 kg Weight 90.718 kg Weight 90.718 kg Physical Exam Narrative: General: Alert oriented x3, patient seen laying in bed appearing comfortable at this time. Right foot wrapped with bandage. HEENT: Normocephalic, atraumatic, EOMI, Cardio: Regular rate rhythm, normal S1-S2, Respiratory: Good bilateral air entry, no wheezes no rhonchi appreciated GI: Abdomen soft, nontender, bowel sounds + Extremities:no edema b/l LE Data 04/19/25 05:17 04/19/25 05:17 Micro: Microbiology 04/18/25 13:31 Gram Stain - Final Tissue Anaerobic Culture - Preliminary Abscess Culture - Preliminary Coag positive Staphylococcus 04/18/25 11:07 Blood Culture - Preliminary Blood NEGATIVE TO DATE 04/18/25 11:01 Blood Culture - Preliminary Blood NEGATIVE TO DATE A&P Assessment and plan (1) Essential hypertension: (2) Hyperlipidemia: (3) Type 2 diabetes mellitus: (4) GERD without esophagitis: (5) Cellulitis of foot, right: (6) Gangrene of right foot: (7) Foot abscess: Plan #Right great toe infection #Right foot cellulitis #Large foot abscess status post washout drainage and right big toe amputation #Diabetes mellitus #Hypertension #Hypercholesterolemia ? Will place on vancomycin and Zosyn broad-spectrum antibiotics ? Check procalcitonin ? Check blood cultures ? Intraoperative cultures will be obtained ? Podiatry plans to retake the OR in next few days for repeat debridement if required. ? Check CRP in AM. Today 118. ? Will follow cultures to aid in antibiotic at discharge ? Requires IV antibiotics at this time for right foot abscess ? Sliding scale insulin moderate dose intensity ? Check hemoglobin A1c ? Continue on carb consistent diet ? Check venous Dopplers to rule out DVT Full code DVT prophylaxis: Heparin SQ twice daily 04/19/2025 Consult infectious disease for antibiotic recommendations Continue vancomycin and Zosyn at this time until culture data available Patient will likely need PICC line with IV antibiotics x 6 weeks Plan for delayed wound closure tomorrow 04/20 at noon with podiatry. Venous Dopplers negative for DVT. Continue antibiotics at this time. Continue blood sugar management with sliding scale at this time. Hemoglobin A1c 7.8. Patient states she is not interested in going to a facility for wound care or IV antibiotics. She would like to go home. She will cover the foot with a plastic bag if needed however would like to go home. PDMP PDMP Reviewed: Not Reviewed Attestations Medical Necessity Statement*: Greater than 2 midnight stay expected at this time. Coding Level of Care Code Acute Code for Chg Fwd Diagnoses Essential hypertension I10 Mixed hyperlipidemia E78.2 Hyperlipidemia type: mixed hyperlipidemia Type 2 diabetes mellitus without complication, without long-term current use of insulin E11.9 Diabetes mellitus nursing home insulin use: without nursing home use Diabetes mellitus complication status: without complication GERD without esophagitis K21.9 Cellulitis of foot, right L03.115 Gangrene of right foot I96 Foot abscess L02.619
[2025-04-19 20:00] VITALS: BP 137/61; PULSE 75; RESP 17; TEMP 37.4; O2SAT 90
[2025-04-20] VITALS (13 sets, daily range): BP systolic 130–168; BP diastolic 56–91; PULSE 63–106; RESP 16–18; TEMP 36.2–37.3; O2SAT 94–99
[2025-04-20] MEDS: VANCOMYCIN ADD-Vantage 1,000 MG in 0.9% NaCl ADD-Vantage 250 ML 250 MG IV ×2 (00:49→15:07)
[2025-04-20] MEDS: piperacillin-tazobactam 3.375 GM in sodium chloride 0.9% (plus) 50 ML IV ×3 (01:58→16:38)
[2025-04-20] MEDS: heparin 5,000 unit/mL INJ 1 mL 5000 UNIT SUBCUT ×2 (01:58→13:43)
[2025-04-20 05:59] LABS: Hematocrit 35.4 % (36-47); Hemoglobin 11.70 g/dL (11.27-16.99); Mean Corpuscular HGB Conc 33.1 g/dL (30-55); Mean Corpuscular Hemoglobin 28.5 pg (27-33); Mean Corpuscular Volume 86.3 fl (85-98); Nucleated Red Blood Cells % 0 %; Platelet Count 207 10^3/cmm (157-399); Red Blood Count 4.10 10^6/uL (3.85-5.65); White Blood Count 8.09 10^3/uL (3.29-11.43)
[2025-04-20 06:12] LABS: Alanine Aminotransferase 22 U/L (0-33); Albumin Level 3.0 g/dL (3.5-5.2); Alkaline Phosphatase 85 U/L (35-105); Anion Gap 15.8 (5-19); Aspartate Amino Transferase 25 U/L (0-32); Blood Urea Nitrogen 7 mg/dL (8-23); Calcium 8.8 mg/dL (8.5-10.5); Carbon Dioxide 24 mmol/L (22-29); Chloride 104 mmol/L (98-107); Creatinine Clr Calc Pharmacy 61.0649; Globulin 3.2 g/dL (1.3-4.6); Glucose 181 mg/dL (65-115); Magnesium 1.7 mg/dL (1.7-2.3); Osmolality Calculated 293 mOsm/kg (285-295); Potassium 3.8 mmol/L (3.5-5.1); Sodium 140 mmol/L (136-145); Total Protein 6.2 g/dL (6.6-8.7)
--- NOTE | 2025-04-20 10:58 | PM.PN ---
Subjective Subjective: Seen this morning. Patient awaiting to go to the OR today for delayed wound closure. Wound culture positive for Staph aureus. Sensitivity pending at this time. Vitals/I&O/Wt Last Vital Signs Temp 98.3 F 04/20/25 07:12 Pulse 68 04/20/25 07:12 Resp 17 04/20/25 07:12 BP 156/76 04/20/25 07:12 Pulse Ox 95 04/20/25 07:12 O2 Del Method Room Air 04/20/25 07:12 O2 Flow Rate 8 04/18/25 14:02 04/19/25 04/20/25 04/20/25 22:59 06:59 14:59 Intake Total 1050 / 1830 300 / 2130 Output Total 300 / 300 1200 / 1500 300 / 300 Balance 750 / 1530 -900 / 630 -300 / -300 Weight last 48 hrs Weight 89.414 kg Weight 90.401 kg Weight 90.718 kg Physical Exam Narrative: General: Alert oriented x3, patient seen laying in bed appearing comfortable at this time. Right foot wrapped with bandage. HEENT: Normocephalic, atraumatic, EOMI, Cardio: Regular rate rhythm, normal S1-S2, Respiratory: Good bilateral air entry, no wheezes no rhonchi appreciated GI: Abdomen soft, nontender, bowel sounds + Extremities:no edema b/l LE Data 04/20/25 05:41 04/20/25 05:41 Micro: Microbiology 04/18/25 13:31 Gram Stain - Final Tissue Anaerobic Culture - Preliminary Abscess Culture - Final Staphylococcus aureus 04/18/25 11:07 Blood Culture - Preliminary Blood NEGATIVE TO DATE 04/18/25 11:01 Blood Culture - Preliminary Blood NEGATIVE TO DATE A&P Assessment and plan (1) Essential hypertension: (2) Hyperlipidemia: (3) Type 2 diabetes mellitus: (4) GERD without esophagitis: (5) Cellulitis of foot, right: (6) Gangrene of right foot: (7) Foot abscess: Plan #Right great toe infection #Right foot cellulitis #Large foot abscess status post washout drainage and right big toe amputation #Diabetes mellitus #Hypertension #Hypercholesterolemia ? Will place on vancomycin and Zosyn broad-spectrum antibiotics ? Check procalcitonin ? Check blood cultures ? Intraoperative cultures will be obtained ? Podiatry plans to retake the OR in next few days for repeat debridement if required. ? Check CRP in AM. Today 118. ? Will follow cultures to aid in antibiotic at discharge ? Requires IV antibiotics at this time for right foot abscess ? Sliding scale insulin moderate dose intensity ? Check hemoglobin A1c ? Continue on carb consistent diet ? Check venous Dopplers to rule out DVT Full code DVT prophylaxis: Heparin SQ twice daily 04/19/2025 Consult infectious disease for antibiotic recommendations Continue vancomycin and Zosyn at this time until culture data available Patient will likely need PICC line with IV antibiotics x 6 weeks Plan for delayed wound closure tomorrow 04/20 at noon with podiatry. Venous Dopplers negative for DVT. Continue antibiotics at this time. Continue blood sugar management with sliding scale at this time. Hemoglobin A1c 7.8. Patient states she is not interested in going to a facility for wound care or IV antibiotics. She would like to go home. She will cover the foot with a plastic bag if needed however would like to go home. 04/20/2025 Await ID recommendations Continue vancomycin and Zosyn at this time. Plan for delayed wound closure today. Will order PICC line after speaking to ID Continue antibiotics. Safe discharge planning. Case management working on home health acceptance for IV antibiotics. PDMP PDMP Reviewed: Not Reviewed Attestations Medical Necessity Statement*: Greater than 2 midnight stay expected at this time. Diagnoses Essential hypertension I10 Mixed hyperlipidemia E78.2 Hyperlipidemia type: mixed hyperlipidemia Type 2 diabetes mellitus without complication, without long-term current use of insulin E11.9 Diabetes mellitus technician terminal and repeater insulin use: without care home use Diabetes mellitus complication status: without complication GERD without esophagitis K21.9 Cellulitis of foot, right L03.115 Gangrene of right foot I96 Foot abscess L02.619
--- NOTE | 2025-04-20 11:10 | P.CONIM_ITS ---
Providers/Reason For Consult 2 Consulting Physician/Specialty*: Maite aden MD / Infectious Disease Reason for Consult*: Foot abscess Requesting Physician: Sandra Gallo MD Attending Physician: Sandra Gallo MD Primary Care Provider: MARICARMEN Boggs History of Present Illness History of Present Illness Erica Bradford is a 84 year old female With past medical history of diabetes presented to the hospital with a wound on her right foot which started a few days ago. She had quickly progressing drainage and redness of the foot. She was found to have a full-thickness ulceration to the right hallux. Reviewed pictures from podiatry upon admission. There appears to be on the dorsal aspect impetigo over the forefoot additionally. She underwent incision and drainage of the right foot and right hallux amputation on April 18, 2025 in the operating room with podiatry. Intraoperatively she was found to have a large abscess in the first intermetatarsal space of the right foot enveloping the first metatarsophalangeal joint. Per review of op note there was noted to be an extravasation of purulent material in the first intermetatarsal space. Cultures were taken and sent for identification and sensitivity. There was compromise of the first metatarsal phalangeal joint capsule. X-ray of the foot taken in the emergency room had shown small radiolucencies concerning for gas gangrene. She is planned for a delayed primary closure this afternoon. Patient is currently on treatment with IV piperacillin/tazobactam and vancomycin. Patient has declined placement at SNF. Patient is currently in the OR therefore has been unable to be examined today. Review of Systems 2 General: Reports: Other (patient N/A for exam as she is in the OR. ) Medications/Allergies Home Medications ?Medication ?Instructions ?Recorded ?Confirmed ?Last Taken ?Type Motorized Scooter #1 ea 05/17/21 04/18/25 Unkn own Rx blood sugar diagnostic (Blood #50 ea 11/27/21 04/18/25 Unknown Rx Glucose Test strips) blood-glucose meter (Accu-Chek #1 ea 04/23/22 04/18/25 Unknown Rx Guide Glucose Meter) lancets (Accu-Chek Softclix #200 ea 02/21/25 04/18/25 Unknown Rx Lancets) amlodipine 10 mg tablet 10 mg PO DAILY 04/18/2503/22 Unknown History celecoxib 200 mg capsule 200 mg PO BID 04/18/2504/18 Unknown History glipizide 5 mg tablet 5 mg PO BID 04/18/25 5 Unknown History metoprolol tartrate 50 mg tablet 50 mg PO DAILY 04/18/25 Unknown History omeprazole 40 mg capsule,delayed 40 mg PO DAILY 04/18/25 Unknown History release oxybutynin chloride 5 mg tablet 5 mg PO DAILY 04/18/25 04/18/25 Unknown History rosuvastatin 10 mg tablet 10 mg PO DAILY 04/18/2503/22 Unknown History metronidazole 500 mg tablet 500 mg PO Q12H 4 weeks #56 tabs 04/20/25 Unknown Rx Allergies Allergy/AdvReac Type Severity Reaction Status Date / Time meperidine (From Demerol) Allergy Unknown Verified 04/18/25 10:31 Current Medications Generic Name Dose Route Start Last Admin Trade Name Freq PRN Reason Stop Dose Admin Acetaminophen 650 mg 04/18/25 14:20 04/19/25 17:02 Acetaminophen 325 Mg Tablet PO 650 mg Q6H PRN Administration Mild/Mod Pain Or Temp >/= 101 Atorvastatin Calcium 40 mg 04/19/25 09:00 04/20/25 07:52 Atorvastatin 40 Mg Tablet PO 40 mg DAILY CARLOS Administration Famotidine 20 mg 04/18/25 14:30 04/20/25 06:03 Famotidine 20 Mg/2 Ml Inj IVP 20 mg Q12H CARLOS Administration Heparin Sodium (Porcine) 5,000 unit 04/18/25 14:30 04/20/25 01:58 Heparin 5,000 Unit/Ml Inj 1 Ml SUBCUT 5,000 unit Q12H CARLOS Administration Sodium Chloride 1,000 mls @ 75 mls/hr 04/18/25 14:30 04/19/25 21:49 Sodium Chloride 0.9% IV 75 mls/hr .[id number] CARLOS Infusion Piperacillin Sod/Tazobactam 50 mls @ 12.5 mls/hr 04/18/25 18:00 04/20/25 09:07 Sod 3.375 gm/ Sodium Chloride IV 12.5 mls/hr Q8H CARLOS Administration Vancomycin HCl 1,000 mg/ 250 mls @ 250 mls/hr 04/19/25 01:00 04/20/25 01:57 Sodium Chloride IV Infused Q12H CARLOS Infusion Insulin Human Lispro 0 unit 04/18/25 18:00 04/20/25 06:50 Insulin Lispro 100 Unit/1 Ml SUBCUT Not Given WM&BEDTIME CARLOS Protocol Metoprolol Tartrate 50 mg 04/19/25 09:00 04/20/25 07:51 Metoprolol Tartrate 50 Mg Tablet PO 50 mg DAILY CARLOS Administration Pantoprazole Sodium 40 mg 04/19/25 09:00 04/20/25 07:[address] 40 Mg Tablet PO 40 mg DAILY CARLOS Administration PFSH Acute 2 PFSH: Medical History Overactive bladder GERD without esophagitis Family History Other Hypertension Social History Smoking and tobacco/nicotine status: never used tobacco/nicotine Alcohol intake: never Substance/Drug Use: never Adopted: No Caregiver/support person: Yes Lives independently: No Household members: spouse Marital status: Current occupational status: retired Sexually active: Yes Do you think of yourself as: Straight/Heterosexual Current gender identity: Female Taylor/Judaism: [employer]aritan Vitals/I&O/Wt Last Vital Signs Temp 98.3 F 04/20/25 07:12 Pulse 68 04/20/25 07:12 Resp 17 04/20/25 07:12 BP 156/76 04/20/25 07:12 Pulse Ox 95 04/20/25 07:12 O2 Del Method Room Air 04/20/25 07:12 O2 Flow Rate 8 04/18/25 14:02 04/19/25 04/20/25 04/20/25 22:59 06:59 14:59 Intake Total 1050 / 1830 300 / 2130 Output Total 300 / 300 1200 / 1500 300 / 300 Balance 750 / 1530 -900 / 630 -300 / -300 Weight last 48 hrs Weight 89.414 kg Weight 90.401 kg Weight 90.718 kg Physical Exam 2 Narrative: Patient not examined as she is in the OR. Data 04/20/25 05:41 04/20/25 05:41 Micro: Microbiology 04/18/25 13:31 Gram Stain - Final Tissue Anaerobic Culture - Preliminary Abscess Culture - Final Staphylococcus aureus NAME: Erica Bradford LOC: [facility] U #: [id number] AGE/SX: 84/F ROOM: 260 R E04/18/[address]: Sandra Gallo MD : 1940 BED: 1 D IS: FAX #: STATUS: ADM IN TLOC: Spec #: [id number] Krista: 04/18/25-1 Status: RES Req #: [id number] Recd: 04/18/25-[address]: Usman Abdi DPM Src: Tissue SpDesc: Ordered: Absces Cult&GS, Anaer Comments: Comment abscess right foot Procedure Result Verified Site Gram Stain Final 04/18/25-1520 Result FEW GRAM POSITIVE COCCI IN PAIRS IN CLUSTERS FEW WHITE BLOOD CELLS Anaerobic Culture Preliminary 04/20/25-1023 NO ANAEROBES ISOLATED ON DAY 2 Anaerobic Culture Preliminary (changed) 04/19/25-1116 NO ANAEROBES ISOLATED ON DAY 1 Abscess Culture Final 04/20/25-0840 Organism 1 Staphylococcus aureus Growth HEAVY DAY 2 S aureus M.I.C. RX --------- ------ * Ciprofloxacin <=1 S * Clindamycin <=0.5 S * Erythromycin >4 R * Gentamicin <=4 S * Levofloxacin <=1 S * Linezolid 4 S * Moxifloxacin <=0.5 S * Oxacillin 0.5 S * Penicillin >8 R * Rifampin <=1 S * Tetracycline <=4 S * Trimethoprim/Sulfamethoxazole <=0.5/9.5 S Vancomycin 2 S Daptomycin 1 S 04/18/25 11:07 Blood Culture - Preliminary Blood NEGATIVE TO DATE 04/18/25 11:01 Blood Culture - Preliminary Blood NEGATIVE TO DATE Other data: rdering Provider/Ordering MD: Eusebio Clemons DO Date of Service: 04/18/25 Procedure(s): XR foot RT min 3V* 57045 Accession Number(s): [id number] Report Number: [id number] WS: [id number] XR foot RT min 3V* 51839 REASON FOR EXAM: Pain swelling infection FINDINGS: No acute fracture or focal bone lesion. No bone erosion or periosteal reaction. Significant hallux valgus subluxation at the first MTP joint with mild changes of osteoarthritis. Mild joint space narrowing and mild subchondral sclerosis in the DIP and PIP joints of the toes. Significant joint space narrowing and subchondral sclerosis in the Lisfranc, intertarsal, and Chopart joints of the midfoot. Large dorsal osteophytosis in the medial cuneiform tarsal navicular articulation. Subtalar joint is intact and relatively well preserved. Large anterior calcaneal enthesophyte. XR/XR foot RT min 3V* [id number] IMPRESSION: No finding of osteomyelitis or septic joint. 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 Patient: Erica Bradford Unit #: [id number] : 1940 Age/Sex: 84 / F ADM Date: 04/18/25 Loc: [facility] Room/Bed: [facility] Attending Dr: Sandra Gallo MD Ordering Provider/Ordering MD: Sandra Gallo MD Date of Service: 04/18/25 Procedure(s): [place] [id number] Accession Number(s): [id number] Report Number: [id number] Erica Bradford Age: 84 Gender: F : 1940 Exam Date: 04/18/2025 19:14 Ordering Phys: Sandra Gallo MD Technologist: Exam Location: [facility] Indication: r/o dvt s/p RT 1st toe amputation HISTORY: r/o dvt s/p RT 1st toe amputation PROCEDURES: Venous duplex imaging was performed in bilateral lower extremities. The following venous structures were evaluated: common femoral vein, profunda vein, proximal portion of the greater saphenous vein, superficial femoral vein, and the popliteal vein. In addition, the posterior tibial and peroneal veins were evaluated. FINDINGS: Normal 2-D Doppler and augmentation and compressibility throughout the lower extremity venous structures. Additional imaging through the proximal calf veins also reveals no thrombus. Limited evaluation of the greater saphenous vein is patent with no thrombus. CONCLUSIONS No DVT bilateral lower extremities. A&P Assessment and plan (1) Cellulitis of foot, right: (2) Gangrene of foot: (3) Diabetic foot infection: Plan 84 year old lady admitted with diabetic foot infection Blood cx negative this admission X ray foot without osteomyelitis She is s/p I&D of the right foot with right hallux amputation on 04/18 with delayed primary closure today. Id service consulted for discharge abx recommendations Per review of Op note, there was a large area of necrosis over the hallux and first intermetatarsal space. There was noted to be an extravasation of purulent material coming from the area. There was noted to extend into the first intermetatarsal space and to the plantar aspect of the foot. This was noted to involve the first metatarsal phalangeal joint with compromise of the first metatarsal phalangeal joint capsule. She underwent right hallux amputation. OR cx showing MSSA At this time, patient is N/A in the room for examination and discussion, therefore care plan has been discussed with primary team and case management. Patient has currently refused iv abx and wound care at [facility]. She will be unable to do cefazolin TID at home due to lack or reliable teachable caregiver. She is unable to get Home health services at home per discussion with case management. She may be able to travel to infusion center at [facility] for once daily infusions if she is able to get a ride there. In this case, Ceftriaxone 2g iv every 24 hrs may will be an option over the next 4 weeks. In case patient is unable to travel for ceftriaxone infusions,then an alternate may be Dalbavancin 1000mg iv x 1 at discharge followed by a second dose of 500mg in one week with close follow up with podiatry. Thank for you for this consult. I will be away for rest of the week being off call, please call with any questions or concerns. PDMP PDMP Reviewed: Not Reviewed Consult Attestations 2 Medical Necessity Statement: per admitting Coding Level of Care Code Acute Code for [facility] Fwd Diagnoses Cellulitis of foot, right L03.115 Gangrene of foot I96 Diabetic foot infection E11.628; L08.9
--- NOTE | 2025-04-20 11:10 | ANES.PREANE2 ---
Pre-Anesthetic Assessment Height/Weight: Height 5 ft 6 in Weight 197 lb 2 oz Temp Pulse Resp BP Pulse Ox O2 Del Method O2 Flow Rate 98.3 F 68 17 156/76 95 Room Air 8 04/20/25 07:12 04/20/25 07:12 04/20/25 07:12 04/20/25 07:12 04/20/25 07:12 04/20/25 07:12 04/18/25 14:02 Preop Diagnosis: Foot infection Operation Date: 04/18/25 13:00 Proposed Procedures p Incision And Drainage(Right) - Usman Abdi DPM Operation Date: 04/20/25 12:10 Proposed Procedures p Incision And Drainage Incision of Bone Cortex(Right) - Usman Abdi DPM Was Beta Estrellita taken within 24 hours: Yes Was Clonidine taken within 24 hours: N/A Last intake: Intake Last Liquid Date 04/19/25 Last Liquid Time 22:00 Last Solid Date 04/19/25 Last Solid Time 18:00 Social No alcohol and No tobacco Exam alert, oriented x 3, clear to auscultation bilaterally and regular rate & rhythm Airway Submandibular: within normal limits Cervical ROM: within normal limits Mallampati: Class III Comments: Comments: Few missing teeth, denies any loose Anesthetic Plan Anesthesia: MAC Other: Repeat patient, he here with us on 04/18/2025 for I&D NPO since yesterday evening No prior issues with anesthesia Hips history of hypertension on amlodipine and metoprolol GERD, controlled with omeprazole Type 2 diabetes. No insulin. BS 181 Labs from today reviewed and acceptable for procedure Plan for MAC anesthesia with local via surgeon Medications/Allergies Home Medications ?Medication ?Instructions ?Recorded ?Confirmed ?Last Taken ?Type Motorized Scooter #1 ea 05/17/21 04/18/25 Unknown Rx blood sugar diagnostic (Blood #50 ea 11/27/21 04/18/25 Unknown Rx Glucose Test strips) blood-glucose meter (Accu-Chek #1 ea 04/23/22 04/18/25 Unknown Rx Guide Glucose Meter) lancets (Accu-Chek Softclix #200 ea 02/21/25 04/18/25 Unknown Rx Lancets) amlodipine 10 mg tablet 10 mg PO DAILY 04/18/25 04/18/25 Unknown History celecoxib 200 mg capsule 200 mg PO BID 04/18/25 04/18/25 Unknown History glipizide 5 mg tablet 5 mg PO BID 04/18/25 04/18/25 Unknown History metoprolol tartrate 50 mg tablet 50 mg PO DAILY 04/18/25 04/18/25 Unknown History omeprazole 40 mg capsule,delayed 40 mg PO DAILY 04/18/25 04/18/25 Unknown History release oxybutynin chloride 5 mg tablet 5 mg PO DAILY 04/18/25 04/18/25 Unknown History rosuvastatin 10 mg tablet 10 mg PO DAILY 04/18/25 04/18/25 Unknown History Allergies Allergy/AdvReac Type Severity Reaction Status Date / Time meperidine (From Demerol) Allergy Unknown Verified 04/18/25 10:31 Current Medications Generic Name Dose Route Start Last Admin Trade Name Freq PRN Reason Stop Dose Admin Acetaminophen 650 mg 04/18/25 14:20 04/19/25 17:02 Acetaminophen 325 Mg Tablet PO 650 mg Q6H PRN Administration Mild/Mod Pain Or Temp >/= 101 Atorvastatin Calcium 40 mg 04/19/25 09:00 04/20/25 07:52 Atorvastatin 40 Mg Tablet PO 40 mg DAILY CARLOS Administration Famotidine 20 mg 04/18/25 14:30 04/20/25 06:03 Famotidine 20 Mg/2 Ml Inj IVP 20 mg Q12H CARLOS Administration Heparin Sodium (Porcine) 5,000 unit 04/18/25 14:30 04/20/25 01:58 Heparin 5,000 Unit/Ml Inj 1 Ml SUBCUT 5,000 unit Q12H CARLOS Administration Sodium Chloride 1,000 mls @ 75 mls/hr 04/18/25 14:30 04/19/25 21:49 Sodium Chloride 0.9% IV 75 mls/hr .[id number] CARLOS Infusion Piperacillin Sod/Tazobactam 50 mls @ 12.5 mls/hr 04/18/25 18:00 04/20/25 09:07 Sod 3.375 gm/ Sodium Chloride IV 12.5 mls/hr Q8H CARLOS Administration Vancomycin HCl 1,000 mg/ 250 mls @ 250 mls/hr 04/19/25 01:00 04/20/25 01:57 Sodium Chloride IV Infused Q12H CARLOS Infusion Insulin Human Lispro 0 unit 04/18/25 18:00 04/20/25 06:50 Insulin Lispro 100 Unit/1 Ml SUBCUT Not Given WM&BEDTIME CARLOS Protocol Metoprolol Tartrate 50 mg 04/19/25 09:00 04/20/25 07:51 Metoprolol Tartrate 50 Mg Tablet PO 50 mg DAILY CARLOS Administration Pantoprazole Sodium 40 mg 04/19/25 09:00 04/20/25 07:[address] 40 Mg Tablet PO 40 mg DAILY CARLOS Administration [facility] Anesthesia Medical History Overactive bladder GERD without esophagitis Family History Other Hypertension Social History Smoking and tobacco/nicotine status: never used tobacco/nicotine Alcohol intake: never Substance/Drug Use: never Adopted: No Caregiver/support person: Yes Lives independently: No Household members: spouse Marital status: Current occupational status: retired Sexually active: Yes Do you think of yourself as: Straight/Heterosexual Current gender identity: Female Taylor/Yarsani: Baptism Data Anesthesia 04/20/25 05:41 04/20/25 05:41 Short CBC 04/18/25 04/19/25 04/20/25 Range/Units 11:01 05:17 05:41 WBC 10.31 8.28 8.09 (3.29-11.43) 10^3/uL Hgb 14.30 12.00 11.70 (11.27-16.99) g/dL Hct 42.2 36.6 35.4 L (36-47) % MCV 85.1 88.0 86.3 (85-98) fl Plt Count 268 193 207 (157-399) 10^3/cmm Neut % (Auto) 76.2 73.8 70.3 % Neut # (Auto) 7.86 H 6.12 5.68 (1.8-7.7) 10^3/uL BMP 04/18/25 04/19/25 04/20/25 11:01 05:17 05:41 Sodium 136 139 140 Potassium 3.8 3.8 3.8 Chloride 98 104 104 Carbon Dioxide 22 21 L 24 BUN 13 8 7 L Creatinine 0.6 0.6 0.6 Glucose 195 H 186 H 181 H Calcium 9.7 8.4 L 8.8 Liver Function 04/18/25 04/19/25 04/20/25 Range/Units 11:01 05:17 05:41 Total Bilirubin 1.0 0.8 0.7 (0.15-1.2) mg/dL AST 27 20 25 (0-32) U/L ALT 28 21 22 (0-33) U/L Alkaline Phosphatase 104 88 85 (35-105) U/L Albumin 3.6 2.8 L 3.0 L (3.5-5.2) g/dL Coags 04/18/25 11:01 ESR 67 H C-Reactive Protein 118.2 H Microbiology 04/18/25 13:31 Gram Stain - Final Tissue Anaerobic Culture - Preliminary Abscess Culture - Final Staphylococcus aureus 04/18/25 11:07 Blood Culture - Preliminary Blood NEGATIVE TO DATE 04/18/25 11:01 Blood Culture - Preliminary Blood NEGATIVE TO DATE
--- NOTE | 2025-04-20 11:57 | W.PM.OPSUD ---
Surgery/Procedure H&P Update DATE OF PROCEDURE: April 20, 2025 DATE H&P PERFORMED: 04/18/25 H&P UPDATE INFORMATION: I have reviewed H&P completed within last 30 days, I have examined patient prior to procedure, No changes to prior documentation, H&P is in [facility] EMR on date indicated and Risks and benefits of the procedure reviewed PREOP DIAGNOSIS: Foot infection PLANNED PROCEDURE: Operation Date: 04/18/25 13:00 Proposed Procedures p Incision And Drainage(Right) - Usman Abdi DPM Operation Date: 04/20/25 12:10 Proposed Procedures p Incision And Drainage Incision of Bone Cortex(Right) - Usman Abdi DPM
--- NOTE | 2025-04-20 12:16 | PC.SOCIAL ---
IMM Updated Updated pt on IMM. No questions voiced. Provided pt a copy. Initialed, dated, & timed a copy & placed in chart.
[2025-04-20] MEDS: BUPivacaine 0.5% INJ 30 mL INJECTION (12:20)
--- NOTE | 2025-04-20 12:49 | P.OP_ITS ---
Operative Report Date of procedure: April 20, 2025 Surgeon: Usman Abdi DPM Procedure: Date of procedure: 04-20-25 Pre-op diagnosis: Right foot osteomyelitis Post-op diagnosis: Same Post-op findings: Degenerative changes of first metatarsal head concerning for osteomyelitis. No further abscess Procedure done: 1. Incision bone cortex right foot CPT 44532 2. Delayed primary closure right foot CPT 75022 Implants: None Specimens removed: First metatarsal head right foot Surgeon: Dr. Usman Abdi DPM Assistant Professor Of Dietetics: Sweta Estimated blood loss: 5 cc Tourniquet time: 19 minutes Complications: None The patient presents with a severe foot infection involving right foot, characterized by erythema, swelling, and drainage. The infection is complicated by underlying conditions, including diabetes, PAD, which have contributed to the progression of the infection despite conservative management. Preoperative imaging and laboratory results indicate osteomyelitis, abscess formation, necessitating surgical intervention. Patient is status post right hallux amputation. Returns to the operating room for definitive treatment and delayed primary closure the planned procedure is intended to address the infection, debride necrotic tissue, and, if necessary, assess the viability of surrounding structures to prevent further complications. The patient has been NPO since midnight. The history has been reviewed and the history and physical is current. The signed consent was confirmed and placed in the patient chart. Patient imaging has been reviewed and is consistent with the diagnosis. Under mild sedation, the patient was brought into the operating room and placed on the table in the supine position. Patient is receiving antibiotics around the clock on the floor, Therefore, additional antibiotic prophylaxix was not administered. MAC sedation was then performed by the anesthesiateam. A local field block was performed using 0.5% Marcaine plain. A pneumatic tourniquet was then placed about the right ankle. The operative extremity was then prepped and draped in the usual fashion. The tourniquet was inflated 250 mmHg. After prep, the following procedure was then performed. Attention was directed to the right foot where a large defect from right hallux amputation was visualized. Small amount of necrotic tissue was noted around the incisions of the amputation site. First metatarsal head was visualized and not ed to have dark discoloration distally concerning for osteomyelitis. First metatarsal prominence also prevented wound closure. #15 blade was used to incise bone cortex of right foot first metatarsal. The first metatarsal was exposed and a sagittal bone saw was used to resect the distal aspect of the first metatarsal head. This was passed from the operative field. The site was irrigated with copious amounts sterile saline. Attention was then directed to closure of the periosteum and deep tissue as well as skin using 2-0 Prolene. The entire incision was then closed using 2-0 Prolene in simple interrupted and retention suture fashion. The tourniquet was let down and good hyperemic response was noted all digits of the right foot. The incision site was then dressed with Xeroform, 4 x 4 gauze, ABD pad, Kerlix, Sixto. The patient tolerated the procedure and anesthesia well and without complication. The patient was transported from the operating room to the recovery room with vital signs stable and vascular status intact to all digits of the right foot. Thepatient was instructed to remain minimal weightbearing in postop shoe to the operative extremity, to keep surgical dressing clean, dry and intact. The patient will be transferred back to the floor once anesthesia criteria is met. I will continue to round on and follow the patient in the inpatientsetting and provide recommendations to stabilize the patient for discharge.
--- NOTE | 2025-04-20 13:13 | ANE.PACU2 ---
Inpatient post-anesthesia follow up: Airway intact: Yes Vital signs: Temperature 97.2 F Pulse Rate 72 Respiratory Rate 16 Blood Pressure 130/56 Pulse Oximetry 95 Oxygen Delivery Me thod Room Air Oxygen Flow Rate 8 Fraction of Inspir ed Oxygen Hydration adequate: Yes Nausea and vomiting: No Pain level: 1 Mental status: Baseline
--- NOTE | 2025-04-20 15:56 | PC.NURSE ---
this nurse and sylvia george gave patient her belongings back of her purse, cellphone, keys, checkbook, credit cards, loose change and money total of [phone] in juan in her purse. this nurse and patient verified that resident had all belongings and money back at this time.
[2025-04-21] MEDS: piperacillin-tazobactam 3.375 GM in sodium chloride 0.9% (plus) 50 ML IV ×2 (02:11→09:43)
[2025-04-21] MEDS: heparin 5,000 unit/mL INJ 1 mL 5000 UNIT SUBCUT ×2 (02:12→14:15)
[2025-04-21 04:00] VITALS: BP 138/68; PULSE 78; RESP 17; TEMP 36.7; O2SAT 96
[2025-04-21 07:47] VITALS: BP 171/79; PULSE 62; RESP 18; TEMP 37; O2SAT 96
[2025-04-21 11:48] VITALS: BP 120/53; PULSE 72; RESP 17; TEMP 37.4; O2SAT 97
--- NOTE | 2025-04-21 13:11 | P.DS_ITS ---
Discharge Providers Date of Admission: 04/18/25 14:08 Date of Discharge: April 21, 2025 Attending Provider at Admission: Sandra Gallo MD Attending Provider at Discharge: Sandra Gallo MD Primary Care Provider: MARICARMEN Boggs Diagnoses at Discharge Discharge Diagnosis 1. Essential hypertension: Status: Chronic 2. Hyperlipidemia: Status: Acute 3. Type 2 diabetes mellitus: Status: Chronic 4. GERD without esophagitis: Status: Acute 5. Cellulitis of foot, right: Status: Resolved 6. Gangrene of right foot: Status: Resolved 7. Foot abscess: Status: Resolved Reason for Visit Reason for Visit: spot of R foot, red,hot to touch Hospital Course Hospital Course Patient with history of diabetes presented to the hospital with a wound to her right foot. Was diagnosed with cellulitis and right toe infection. She had a large foot abscess. She underwent washout drainage and right big toe amputation with podiatry. PICC line with 6 weeks of antibiotics was recommended however patient wanted to go home. She was denied by several home health companies for home antibiotic administration. Ultimately ID was consulted and dalbavanacin x 2 doses was recommended. She was given 1 dose during hospital stay prior to discharge and second dose was set up to be given as an outpatient. She is to follow-up with ID as an outpatient and podiatry as well. Patient has remained afebrile doing well and will be discharged home in stable condition. Physical Exam Narrative: General: Alert oriented x3, patient seen laying in bed appearing comfortable at this time. Right foot wrapped with bandage. HEENT: Normocephalic, atraumatic, EOMI, Cardio: Regular rate rhythm, normal S1-S2, Respiratory: Good bilateral air entry, no wheezes no rhonchi appreciated GI: Abdomen soft, nontender, bowel sounds + Extremities:no edema b/l LE Discharge Data Studies Completed and Pending Completed Studies During Hospitalization Category Date Time Status XR foot RT min 3V* [id number] Stat Exams 04/18/25 10:42 [place] [id number] Routine Ultrasound 04/18/25 16:13 Completed Pending at discharge Category Date Time Status Abscess Culture and Gram Stain Routine Lab 04/18/25 13:31 Results Anaerobic Culture Routine Lab 04/18/25 13:31 Results Blood Culture Stat Lab 04/18/25 11:07 Results Pathology: Surgical [PTH] Routine Pth 04/18/25 12:51 Received Pathology: Surgical [PTH] Routine Pth 04/18/25 14:00 Stop Req Radiology Impressions Foot X-Ray 04/18/25 10:42 IMPRESSION: No finding of osteomyelitis or septic joint. 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 Laboratory Results WBC 8.09 10^3/uL (3.29-11.43) 04/20/25 05:41 RBC 4.10 10^6/uL (3.85-5.65) 04/20/25 05:41 Hgb 11.70 g/dL (11.27-16.99) 04/20/25 05:41 Hct 35.4 % (36-47) L 04/20/25 05:41 MCV 86.3 fl (85-98) 04/20/25 05:41 MCH 28.5 pg (27-33) 04/20/25 05:41 MCHC 33.1 g/dL (30-55) 04/20/25 05:41 RDW 12.9 % (12.1-15.1) 04/20/25 05:41 Plt Count 207 10^3/cmm (157-399) 04/20/25 05:41 MPV 9.3 fL (7.4-10.4) 04/20/25 05:41 Neut % (Auto) 70.3 % 04/20/25 05:41 Lymph % (Auto) 12.4 % 04/20/25 05:41 Rhea % (Auto) 13.2 % 04/20/25 05:41 Eos % (Auto) 2.3 % 04/20/25 05:41 Baso % (Auto) 0.7 % 04/20/25 05:41 Neut # (Auto) 5.68 10^3/uL (1.8-7.7) 04/20/25 05:41 Lymph # (Auto) 1.0 10^3/uL (0.8-4.8) 04/20/25 05:41 Rhea # (Auto) 1.1 10^3/uL (0.2-0.9) H 04/20/25 05:41 Eos # (Auto) 0.2 10^3/uL (0.0-0.8) 04/20/25 05:41 Baso # (Auto) 0.1 10^3/uL (0.0-0.1) 04/20/25 05:41 Nucleated RBC % (auto) 0 % 04/20/25 05:41 Nucleated RBCs # 0.0 /100WBC 04/20/25 05:41 ESR 67 mm/hr (0-15) H 04/18/25 11:01 Sodium 140 mmol/L (136-145) 04/20/25 05:41 Potassium 3.8 mmol/L (3.5-5.1) 04/20/25 05:41 Chloride 104 mmol/L (98-107) 04/20/25 05:41 Carbon Dioxide 24 mmol/L (22-29) 04/20/25 05:41 Anion Gap 15.8 (5-19) 04/20/25 05:41 BUN 7 mg/dL (8-23) L 04/20/25 05:41 Creatinine 0.6 mg/dL (0.5-0.9) 04/20/25 05:41 GFR Calculation Not Reportable 04/20/25 05:41 Glucose 181 mg/dL (65-115) H 04/20/25 05:41 POC Glucose 191 mg/dL (70-110) H 04/21/25 11:43 Estimat Average Glucose 174 04/18/25 11:01 Hemoglobin A1c 7.7 % (4.0-6.0) H 04/18/25 11:01 Calculated Osmolality 293 mOsm/kg (285-295) 04/20/25 05:41 Lactic Acid 1.4 mmol/L (0.5-2.2) 04/18/25 15:18 Calcium 8.8 mg/dL (8.5-10.5) 04/20/25 05:41 Magnesium 1.7 mg/dL (1.7-2.3) 04/20/25 05:41 Total Bilirubin 0.7 mg/dL (0.15-1.2) 04/20/25 05:41 AST 25 U/L (0-32) 04/20/25 05:41 ALT 22 U/L (0-33) 04/20/25 05:41 Alkaline Phosphatase 85 U/L (35-105) 04/20/25 05:41 C-Reactive Protein 118.2 mg/L (0.0-4.9) H 04/18/25 11:01 Total Protein 6.2 g/dL (6.6-8.7) L 04/20/25 05:41 Albumin 3.0 g/dL (3.5-5.2) L 04/20/25 05:41 Globulin 3.2 g/dL (1.3-4.6) 04/20/25 05:41 Procalcitonin 0.76 ng/mL (0-0.5) H 04/18/25 11:01 TSH 1.41 uIU/mL (0.27-4.20) 04/18/25 11:01 Vancomycin Trough 8.3 ug/mL (10-15) L 04/20/25 13:31 Vitals Last Vital Signs Temp 99.3 F 04/21/25 11:48 Pulse 72 04/21/25 11:48 Resp 17 04/21/25 11:48 BP 120/53 04/21/25 11:48 Pulse Ox 97 04/21/25 11:48 O2 Del Method Room Air 04/21/25 11:48 O2 Flow Rate 8 04/18/25 14:02 Discharge Plan Discharge Patient Disposition: Home Condition: Stable Prescriptions: New metronidazole 500 mg tablet 500 mg PO Q12H 28 Days Qty: 56 0RF Continued (DME) Motorized Scooter See Rx Instructions .Route .MEDSUPPLY Qty: 1 0RF Rx Instructions: As directed (DME) Blood Glucose Test Strip See Rx Instructions .Route Qty: 50 4RF Rx Instructions: two times daily (DME) blood-glucose meter [Accu-Chek Guide Glucose Meter] Misc See Rx Instructions .Route Qty: 1 0RF Rx Instructions: As directed (DME) lancets [Accu-Chek Softclix Lancets] Misc See Rx Instructions .ROUTE .COMPLEX Qty: 200 2RF Dose Instruction: USE TWICE DAILY Rx Instructions: USE TWICE DAILY celecoxib 200 mg capsule 200 mg PO BID omeprazole 40 mg capsule,delayed release(DR/EC) 40 mg PO DAILY amlodipine 10 mg tablet 10 mg PO DAILY metoprolol tartrate 50 mg tablet 50 mg PO DAILY oxybutynin chloride 5 mg tablet 5 mg PO DAILY glipizide 5 mg tablet 5 mg PO BID rosuvastatin 10 mg tablet 10 mg PO DAILY No Action fluconazole 150 mg tablet 150 mg PO Q7D 2 Days Qty: 2 0RF Rx Instructions: administer on day 1 of therapy nystatin 100,000 unit/gram cream 1 applic topical DAILY Qty: 30 1RF Discharge Order = DC NOW: Discharge Order (Routine); Ordered 04/21/25 Ordered By: Sandra Gallo Referrals: Infectious Disease Group [facility] [Provider Group, Infectious Disease] - 05/17/25 11:00 am [facility] Infusion Center [Outside] - 04/29/25 8:30 am Referral Note: Please enter in to the far left entrance of the hospital if you are facing the new medical office building. This is your appointment for your IV antibiotic infusion. Usman Abdi DPM [Physician, Podiatry] - 1 week Referral Note: We have notified your physician's clinic of the need for a follow-up appointment to be scheduled. If you have not heard from them within the next 2 business days, please call them directly. Tracy Ellis FNP [Primary Care Provider, Family Practice] - 1-3 days Referral Note: We have notified your physician's clinic of the need for a follow-up appointment to be scheduled. If you have not heard from them within the next 2 business days, please call them directly. Discharge Diet: Diabetic Discharge Activity: Limit activity as instructed Patient Instructions: Metronidazole (By mouth) (Flagyl, Flagyl 375, Flagyl ER, Likmez), Cellulitis (ED), Acute Wound Care (DC), Abscess Incision and Drainage (DC), Opioid Safety, Post Anesthesia Care, Patient Portal & Shane Instructions Activity Restrictions/Additional Instructions: Leave the dressing on until you see Dr. Abdi in the clinic within a week. You can weight-bear as tolerated in postop shoe. Discharge Attestations Time Spent in Discharge Care*: less than 30 min Quality Metrics Clinical Quality Measures [ No reported AMI, CVA or VTE this stay] Coding Level of Care Code Acute Code for Chg Fwd Diagnoses Essential hypertension I10 Hyperlipidemia E78.2 Hyperlipidemia type: mixed hyperlipidemia Type 2 diabetes mellitus E11.9 Diabetes mellitus complication status: without complication Diabetes mellitus assisted insulin use: without assisted use GERD without esophagitis K21.9 Cellulitis of foot, right L03.115 Gangrene of right foot I96 Foot abscess L02.619
--- NOTE | 2025-04-21 13:22 | P.PN_ITS ---
Subjective 2 Subjective: No overnight events Vitals/I&O/Wt Last Vital Signs Temp 99.3 F 04/21/25 11:48 Pulse 72 04/21/25 11:48 Resp 17 04/21/25 11:48 BP 120/53 04/21/25 11:48 Pulse Ox 97 04/21/25 11:48 O2 Del Method Room Air 04/21/25 11:48 O2 Flow Rate 8 04/18/25 14:02 04/20/25 04/21/25 04/21/25 22:59 06:59 14:59 Intake Total 888.5 / 2178.5 1250 / 3428.5 923.75 / 923.75 Output Total 300 / 605 402 / 1007 400 / 400 Balance 588.5 / 1573.5 848 / 2421.5 523.75 / 523.75 Weight last 48 hrs Weight 200 lb 2 oz Weight 197 lb 2 oz Physical Exam 2 Narrative: BELOW IS A FOCUSED LOWER EXTREMITY EXAM GENERAL: A&O x 3 VASCULAR: DP/PT pulses palpable 2/4 with CFT intact, <3seconds to distal digits DERMATOLOGICAL: Surgical dressing clean, dry, intact with no strikethrough noted. MUSCULOSKELETAL: Status post partial first ray resection right foot NEUROLOGICAL: Diminished sensation to the level of the midfoot bilaterally. IMAGING: Three-view x-rays of right foot taken in the emergency department were independently interpreted by me. These show hallux valgus deformity with metatarsus adductus. Small radiolucencies in first interdigital space concerning for gas gangrene. Data 04/20/25 05:41 04/20/25 05:41 Micro: Microbiology 04/18/25 13:31 Gram Stain - Final Tissue Anaerobic Culture - Preliminary Abscess Culture - Final Staphylococcus aureus A&P Assessment and plan (1) Type 2 diabetes mellitus: (2) Cellulitis of foot, right: (3) Gangrene of right foot: Plan - Right foot gangrene -Labs and vitals reviewed -WBC 10.3 -ESR 67 -CRP 118.2 - VSS -Cultures pending -Abx Vanco/Zosyn -Diet: Okay for diet - No further surgical intervention by podiatry during this admission -Pain Mgmt: Per primary team -Weight bearing: Weightbearing as tolerated to right foot in postop shoe -Dressings: Surgical dressing to be left clean, dry, intact -Trend labs -Discharge plan: Patient okay to discharge home from podiatry standpoint. Follow-up in 1 week. Weight-bear as tolerated in postop shoe. Leave surgical dressing clean, dry, intact until outpatient follow-up with podiatry -Podiatry will continue to round on patient daily and provide recommendations PDMP PDMP Reviewed: Not Reviewed Attestations 2 Medical Necessity Statement*: See hospitalist note Coding Level of Care Code Acute Code for Chg Fwd Diagnoses Type 2 diabetes mellitus without complication, without long-term current use of insulin E11.9 Diabetes mellitus joint terminal attack controller insulin use: without longterm use Diabetes mellitus complication status: without complication Cellulitis of foot, right L03.115 Gangrene of right foot I96
[2025-04-21 16:00] VITALS: BP 162/77; PULSE 61; RESP 18; TEMP 36.9; O2SAT 95
[2025-04-21 18:06] VITALS: BP 162/77; PULSE 61; RESP 18; TEMP 36.9; O2SAT 95
[2025-04-21 18:30] VITALS: BP 162/77; PULSE 61; RESP 18; TEMP 36.9; O2SAT 95
== END 2025-04-21 18:31 | disposition home or self-care (01) | DRG 617 ==
LOC: ER 12:23 → OR 12:24 → MEDSURG 14:08
PROVIDERS: Family Medicine; Podiatrist Foot & Ankle Surgery; Admitting Provider Internal Medicine; Emergency Provider Emergency Medicine; PCP Registered Nurse; Visit Provider Internal Medicine
PROC: 0Y6P0Z0 Detachment at Right 1st Toe, Complete, Open Approach (ICD-10-PCS; principal; 2025-04-18 13:00)
PROC: 0QBN0ZX Excision of Right Metatarsal, Open Approach, Diagnostic (ICD-10-PCS; principal; 2025-04-20 12:00)
DX: E11.621 Type 2 diabetes mellitus with foot ulcer (principal); E11.52 Type 2 diabetes mellitus with diabetic peripheral angiopathy with gangrene; I96 Gangrene, not elsewhere classified; L02.611 Cutaneous abscess of right foot; L97.519 Non-pressure chronic ulcer of other part of right foot with unspecified severity; Z79.84 Long term (current) use of oral hypoglycemic drugs; I10 Essential (primary) hypertension; K21.9 Gastro-esophageal reflux disease without esophagitis; E78.5 Hyperlipidemia, unspecified; L03.031 Cellulitis of right toe
CPT/HCPCS: 36415; 36416; 73630; 80053; 80202; 82962; 83036; 83605; 83735; 84145; 84443; 85025; 85651; 86140; 87040; 87070; 87075; 87077; 87186; 87205; 88305; 88311; 93970; 94664; 96365; 96367; 96372; 97116; 97161; 97165; 99285; J0875; J1644; J1815; J2543; J2704; J3010; J3370; J3490; J7030; J7050; J7060; J9999

== ENCOUNTER → 2025-04-27 10:23 | Outpatient (BNVA) | payer MEDICARE, SELFPAY | PROVIDERS: PCP Registered Nurse; Visit Provider Podiatrist Foot & Ankle Surgery | DX: Z98.890 Other specified postprocedural states (principal); Z91.199 Patient's noncompliance with other medical treatment and regimen due to unspecified reason | CPT/HCPCS: 99214 ==

== ENCOUNTER 2025-04-29 08:10 | Oncology outpatient (recurring) (ONCR) | payer MEDICARE, SELFPAY ==
[2025-04-29] MEDS: dalbavancin 500 MG in dextrose 5 % 100 ML 200 MG IV (08:47)
[2025-04-29 09:20] VITALS: BP 172/67; PULSE 65; RESP 17; TEMP 37.1; O2SAT 95
== END 2025-05-19 23:59 | disposition home or self-care (01) ==
PROVIDERS: PCP Registered Nurse; Visit Provider Podiatrist Foot & Ankle Surgery
DX: L03.115 Cellulitis of right lower limb (principal); I96 Gangrene, not elsewhere classified; L02.611 Cutaneous abscess of right foot
CPT/HCPCS: 96365; J0875

== ENCOUNTER → 2025-05-04 13:57 | Outpatient (BNVA) | payer MEDICARE, SELFPAY | PROVIDERS: PCP Registered Nurse; Visit Provider Podiatrist Foot & Ankle Surgery | DX: Z98.890 Other specified postprocedural states (principal); Z91.199 Patient's noncompliance with other medical treatment and regimen due to unspecified reason; Z89.421 Acquired absence of other right toe(s) | CPT/HCPCS: 15853; 99213 ==

== ENCOUNTER → 2025-05-05 13:59 | Outpatient (BNVA) | payer MEDICARE, SELFPAY | PROVIDERS: PCP Registered Nurse; Visit Provider Thoracic Surgery (Cardiothoracic Vascular Surgery) | DX: I96 Gangrene, not elsewhere classified (principal); T87.81 Dehiscence of amputation stump; Y83.8 Other surgical procedures as the cause of abnormal reaction of the patient, or of later complication, without mention of misadventure at the time of the procedure; Z89.421 Acquired absence of other right toe(s) | CPT/HCPCS: 11043; 11046; 99203 ==

== ENCOUNTER → 2025-05-11 14:23 | Outpatient (BNVA) | payer MEDICARE, SELFPAY | PROVIDERS: PCP Registered Nurse; Visit Provider Registered Nurse | DX: N39.0 Urinary tract infection, site not specified (principal) | CPT/HCPCS: 81000; 87086 ==

== ENCOUNTER → 2025-05-13 09:14 | Outpatient (BNVA) | payer MEDICARE, SELFPAY | PROVIDERS: PCP Registered Nurse; Visit Provider Thoracic Surgery (Cardiothoracic Vascular Surgery) | DX: I96 Gangrene, not elsewhere classified (principal); T87.81 Dehiscence of amputation stump; Y83.8 Other surgical procedures as the cause of abnormal reaction of the patient, or of later complication, without mention of misadventure at the time of the procedure; Z89.421 Acquired absence of other right toe(s) | CPT/HCPCS: 11042; 97605 ==

== ENCOUNTER → 2025-05-17 10:38 | Outpatient (BNVA) | payer MEDICARE, SELFPAY | PROVIDERS: PCP Registered Nurse; Visit Provider Student in an Organized Health Care Education/Training Program | DX: E11.628 Type 2 diabetes mellitus with other skin complications (principal); L08.9 Local infection of the skin and subcutaneous tissue, unspecified | CPT/HCPCS: 99215 ==

== ENCOUNTER → 2025-05-19 14:46 | Outpatient (BNVA) | payer MEDICARE, SELFPAY | PROVIDERS: PCP Registered Nurse; Visit Provider Thoracic Surgery (Cardiothoracic Vascular Surgery) | DX: I96 Gangrene, not elsewhere classified (principal); T87.81 Dehiscence of amputation stump; Y83.8 Other surgical procedures as the cause of abnormal reaction of the patient, or of later complication, without mention of misadventure at the time of the procedure; Z89.421 Acquired absence of other right toe(s) | CPT/HCPCS: 97597; A6237; A6250 ==

== ENCOUNTER → 2025-05-23 10:25 | Outpatient (BNVA) | payer MEDICARE, SELFPAY | PROVIDERS: PCP Registered Nurse; Visit Provider Registered Nurse | DX: N39.0 Urinary tract infection, site not specified (principal) | CPT/HCPCS: 81000; 87086 ==

== ENCOUNTER → 2025-05-27 09:26 | Outpatient (BNVA) | payer MEDICARE, SELFPAY | PROVIDERS: PCP Registered Nurse; Visit Provider Thoracic Surgery (Cardiothoracic Vascular Surgery) | DX: I96 Gangrene, not elsewhere classified (principal); T81.31XD Disruption of external operation (surgical) wound, not elsewhere classified, subsequent encounter; Y83.8 Other surgical procedures as the cause of abnormal reaction of the patient, or of later complication, without mention of misadventure at the time of the procedure | CPT/HCPCS: 97597; 97605; A6237; A6250 ==

== ENCOUNTER → 2025-05-31 11:35 | Outpatient (BNVA) | payer MEDICARE, SELFPAY | PROVIDERS: PCP Registered Nurse; Visit Provider Student in an Organized Health Care Education/Training Program | DX: E11.628 Type 2 diabetes mellitus with other skin complications (principal); L08.9 Local infection of the skin and subcutaneous tissue, unspecified | CPT/HCPCS: 99213 ==

== ENCOUNTER → 2025-06-03 09:36 | Outpatient (BNVA) | payer MEDICARE, SELFPAY | PROVIDERS: PCP Registered Nurse; Visit Provider Thoracic Surgery (Cardiothoracic Vascular Surgery) | DX: I96 Gangrene, not elsewhere classified (principal); T81.31XD Disruption of external operation (surgical) wound, not elsewhere classified, subsequent encounter; Y83.8 Other surgical procedures as the cause of abnormal reaction of the patient, or of later complication, without mention of misadventure at the time of the procedure | CPT/HCPCS: 97597; 97605; A6237; A6250 ==

== ENCOUNTER → 2025-06-10 09:34 | Outpatient (BNVA) | payer MEDICARE, SELFPAY | PROVIDERS: PCP Registered Nurse; Visit Provider Thoracic Surgery (Cardiothoracic Vascular Surgery) | DX: I96 Gangrene, not elsewhere classified (principal); T81.31XD Disruption of external operation (surgical) wound, not elsewhere classified, subsequent encounter; Y83.8 Other surgical procedures as the cause of abnormal reaction of the patient, or of later complication, without mention of misadventure at the time of the procedure | CPT/HCPCS: 97597; A6237; A6250 ==

== ENCOUNTER → 2025-06-17 09:33 | Outpatient (BNVA) | payer MEDICARE, SELFPAY | PROVIDERS: PCP Registered Nurse; Visit Provider Thoracic Surgery (Cardiothoracic Vascular Surgery) | DX: I96 Gangrene, not elsewhere classified (principal); T87.81 Dehiscence of amputation stump; Y83.8 Other surgical procedures as the cause of abnormal reaction of the patient, or of later complication, without mention of misadventure at the time of the procedure; Z89.421 Acquired absence of other right toe(s) | CPT/HCPCS: 97597 ==

== ENCOUNTER → 2025-06-24 09:36 | Outpatient (BNVA) | payer MEDICARE, SELFPAY | PROVIDERS: PCP Registered Nurse; Visit Provider Thoracic Surgery (Cardiothoracic Vascular Surgery) | DX: I96 Gangrene, not elsewhere classified (principal); T87.81 Dehiscence of amputation stump; Y83.8 Other surgical procedures as the cause of abnormal reaction of the patient, or of later complication, without mention of misadventure at the time of the procedure; Z89.421 Acquired absence of other right toe(s) | CPT/HCPCS: 97597 ==

== ENCOUNTER → 2025-07-01 09:43 | Outpatient (BNVA) | payer MEDICARE, SELFPAY | PROVIDERS: PCP Registered Nurse; Visit Provider Thoracic Surgery (Cardiothoracic Vascular Surgery) | DX: I96 Gangrene, not elsewhere classified (principal); T87.81 Dehiscence of amputation stump; Y83.8 Other surgical procedures as the cause of abnormal reaction of the patient, or of later complication, without mention of misadventure at the time of the procedure; Z89.421 Acquired absence of other right toe(s) | CPT/HCPCS: 97597; A6210 ==

== ENCOUNTER → 2025-07-08 09:34 | Outpatient (BNVA) | payer MEDICARE, SELFPAY | PROVIDERS: PCP Registered Nurse; Visit Provider Thoracic Surgery (Cardiothoracic Vascular Surgery) | DX: I96 Gangrene, not elsewhere classified (principal); T87.81 Dehiscence of amputation stump; Y83.8 Other surgical procedures as the cause of abnormal reaction of the patient, or of later complication, without mention of misadventure at the time of the procedure; Z89.421 Acquired absence of other right toe(s) | CPT/HCPCS: 97597; A6210; J9999 ==

== ENCOUNTER → 2025-07-15 09:28 | Outpatient (BNVA) | payer MEDICARE, SELFPAY | PROVIDERS: PCP Registered Nurse; Visit Provider Thoracic Surgery (Cardiothoracic Vascular Surgery) | DX: I96 Gangrene, not elsewhere classified (principal); T87.81 Dehiscence of amputation stump; Y83.8 Other surgical procedures as the cause of abnormal reaction of the patient, or of later complication, without mention of misadventure at the time of the procedure; Z89.421 Acquired absence of other right toe(s) | CPT/HCPCS: 97597; A6210 ==

== ENCOUNTER → 2025-07-22 09:40 | Outpatient (BNVA) | payer MEDICARE, SELFPAY | PROVIDERS: PCP Registered Nurse; Visit Provider Thoracic Surgery (Cardiothoracic Vascular Surgery) | DX: I96 Gangrene, not elsewhere classified (principal); T87.81 Dehiscence of amputation stump; Y83.8 Other surgical procedures as the cause of abnormal reaction of the patient, or of later complication, without mention of misadventure at the time of the procedure; Z89.421 Acquired absence of other right toe(s) | CPT/HCPCS: 97597 ==

== ENCOUNTER → 2025-07-29 09:23 | Outpatient (BNVA) | payer MEDICARE, SELFPAY | PROVIDERS: PCP Registered Nurse; Visit Provider Thoracic Surgery (Cardiothoracic Vascular Surgery) | DX: I96 Gangrene, not elsewhere classified (principal); T87.81 Dehiscence of amputation stump; Y83.8 Other surgical procedures as the cause of abnormal reaction of the patient, or of later complication, without mention of misadventure at the time of the procedure; Z89.421 Acquired absence of other right toe(s) | CPT/HCPCS: 97597 ==

== ENCOUNTER → 2025-08-05 09:36 | Outpatient (BNVA) | payer MEDICARE, SELFPAY | PROVIDERS: PCP Registered Nurse; Visit Provider Thoracic Surgery (Cardiothoracic Vascular Surgery) | DX: Z09 Encounter for follow-up examination after completed treatment for conditions other than malignant neoplasm (principal); Z87.2 Personal history of diseases of the skin and subcutaneous tissue | CPT/HCPCS: 99212 ==